=== PATIENT | female | born 1995 | race Caucasian/White ===

== ENCOUNTER 2018-08-30 12:34 | Emergency (ER) | payer OTHER ==
--- OUTSIDE RECORDS SUMMARY | 2018-08-30 13:05 | XMS REPORT | Encounter Summary ---
:1995 Author Care Team Providers Name Role Phone Antonio Freeman OTHER [phone] Reason for Visit OB 12 week visit Instructions 1. 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 Advised her to take vitamins as tolerated, eat small frequent meals, and stay well hydrated. Asked her to call if severe cramping, bleeding, or nausea occurs. Patient educational handouts: No information available. Plan of Care Reminders Provider Appointments OB Sono Sonogram 08/27/2018 9:30AM OB Sono Mary Ellen Abe 08/27/2018 MD Bandar 9:30AM Lab Urinalysis, In-House Results Dipstick 07/30/2018 Referral None recorded. Procedures None recorded. Surgeries None recorded. Imaging US, In-House Results Obstetric, Limited 07/30/2018 Medications Name Start Date heparin (porcine) 10,000 unit/mL injection solution Take 5000 units twice a day by injection route. heparin (porcine) 5,000 unit/mL injection syringe inject 5000 units heparin BID progesterone micronized 200 mg capsule Take 1 capsule every day by oral route. valacyclovir 500 mg tablet TAKE 1 TABLET BY MOUTH EVERY DAY Medications Administered None recorded. Vitals Height Weight BMI Blood Pressure 5 ft 2 in 178 lbs 32.6 kg/m2 112/78 mm[Hg] Lab Results Date Name Specimen Result Interpretation Description Value Range Status Address 07/30/2018 Urinalysis, Leukocytes Negative In-House Dipstick Results: For Internal Use Only Nitrite negative In-House Results: For Internal Use Only Urobilinogen .2 In-House Results: For Internal Use Only Protein Trace In-House Results: For Internal Use Only Ph 7.0 In-House Results: For Internal Use Only Blood Negative In-House Results: For Internal Use Only Specific 1.025 In-House [place] Results: For Internal Use Only Ketone Negative In-House Results: For Internal Use Only Bilirubin Negative In-House Results: For Internal Use Only Glucose Negative In-House Results: For Internal Use Only Appearance Clear In-House Results: For Internal Use Only Color Yellow In-House Results: For Internal Use Only 07/16/2018 Urinalysis, Leukocytes Negative In-House Dipstick Results: For Internal Use Only Nitrite negative In-House Results: For Internal Use Only Urobilinogen .2 In-House Results: For Internal Use Only Protein Negative In-House Results: For Internal Use Only Ph 6.5 In-House Results: For Internal Use Only Blood Negative In-House Results: For Internal Use Only Specific 1.025 In-House [place] Results: For Internal Use Only Ketone Negative In-House Results: For Internal Use Only Bilirubin Negative In-House Results: For Internal Use Only Glucose Negative In-House Results: For Internal Use Only Appearance Clear In-House Results: For Internal Use Only Color Yellow In-House Results: For Internal Use Only 07/16/2018 Chromosome No observation Lou: 201 13+18+21+X+Y recorded. [address] Aneuploidy, Michael 410, Brown Blood Alcides US, Obstetric, No observation In-House Limited recorded. Results: For Internal Use Only US, Obstetric, No observation In-House Limited recorded. Results: For Internal Use Only Allergies Code Code System Name Reaction Severity Status Onset NKDA Problems Name Status Onset Date Source Chlamydial Infection Active 05/12/2014 History Bacterial Vaginosis Active 09/02/2016 At Risk of Sexually Transmitted Active 09/02/2016 Infection Recurrent Miscarriage Active 03/23/2017 History of Abnormal Cervical Active 03/23/2017 Papanicolaou Smear Herpes Simplex Active 12/15/2017 Proteinuria Active 12/15/2017 Acute Pelvic Pain Active 03/06/2018 Menorrhagia Active 03/06/2018 Active 06/25/2018 Recurrent Genital Herpes Simplex Active Encounter Chlamydial Infection of Lower Active Encounter Genitourinary Tract Candidiasis of Vagina Active 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 Polycystic Ovaries Active Encounter Simple Obesity Active Encounter Lack or Loss of Sexual Desire Active Encounter Acute Cystitis Active Encounter Dyspareunia Active Encounter History of Recurrent Miscarriage - Not Active Delivered Atypical Squamous Cells of Undetermined Active Encounter Significance on Cervical Papanicolaou Smear HPV - Human Papillomavirus Test Positive Active Encounter Cervicovaginal Cytology: Low Grade Active Encounter Squamous Intraepithelial Lesion Procedures Date Name Performed by 07/16/2018 US, Obstetric, Limited In-House Results For Internal Use Only 97227 07/30/2018 US, Obstetric, Limited In-House Results For Internal Use Only 60337 Vaccine List None recorded. Social History Smoking Status Never Smoker Past Encounters 07/30/2018 History of Recurrent Miscarriage - Not Delivered Antonio Freeman MD: [address], [address], [place] [address], Ph. [phone] 07/16/2018 Recurrent Miscarriage; History of Recurrent Miscarriage - Not Delivered Antonio Freeman MD: [address], [address], [place] [address], Ph. [phone] History of Present Illness None recorded. Review of Systems None recorded. Physical Exam None recorded.
--- OUTSIDE RECORDS SUMMARY | 2018-08-30 13:05 | XMS REPORT | Encounter Summary ---
:1995 Author Care Team Providers Name Role Phone Antonio Freeman OTHER [phone] Reason for Visit ob routine visit Instructions 1. screening US, obstetric, transvaginal urinalysis, dipstick culture, urine CBC w/ auto diff HIV (1+2) Ab screen, serum abo group + rh type, blood HBsAg (hepatitis B surface Ag), serum rubella Ab, titer, serum RPR (rapid plasma reagin), serum antibody screen, serum or plasma drug screen, 14 drugs (detectimed), urine genetic screen, unspecified specimen Discussion Note: None recorded.Patient educational handouts: No information available. Plan of Care Reminders Provider Appointments OB Follow up Antonio Freeman, 07/16/2018 9:30AM Lab Urinalysis, In-House Results Dipstick 06/25/2018 Culture, Urine [place] 06/25/2018 [facility] (Lab) CBC W/ Auto [place] Diff 06/25/2018 [facility] (Lab) HIV (1+2) Ab [place] Screen, Serum 06/25/2018 [facility] (Lab) Abo Group + Rh [place] Type, Blood 06/25/2018 [facility] (Lab) HBsAg [place] (Hepatitis B Surface Ag), 06/25/2018 [facility] (Lab) Rubella Ab, [place] Titer, Serum 06/25/2018 [facility] (Lab) RPR (Rapid [place] Plasma Reagin), Serum 06/25/2018 [facility] (Lab) Antibody [place] Screen, Serum or Plasma 06/25/2018 [facility] (Lab) Drug Screen, 14 [place] Drugs (Detectimed), Urine 06/25/2018 [facility] (Lab) Genetic Screen, [place] Unspecified Specimen 06/25/2018 [facility] (Lab) Referral None recorded. Procedures None recorded. Surgeries None recorded. Imaging US, Obstetric, In-House Results Transvaginal 06/25/2018 Medications Name Start Date progesterone micronized 200 mg capsule Take 1 capsule every day by oral route. valacyclovir 500 mg tablet TAKE 1 TABLET BY MOUTH EVERY DAY Medications Administered None recorded. Vitals Height Weight BMI Blood Pressure 5 ft 2 in 182.2 lbs 33.3 kg/m2 135/83 mm[Hg] Lab Results Date Name Specimen Result Interpretation Description Value Range Status Address Urinalysis, Leukocytes Negative In-House Dipstick Results: For Internal Use Only Nitrite negative In-House Results: For Internal Use Only Urobilinogen .2 In-House Results: For Internal Use Only Protein Negative In-House Results: For Internal Use Only Ph 6.0 In-House Results: For Internal Use Only Blood Negative In-House Results: For Internal Use Only Specific 1.005 In-House [place] Results: For Internal Use Only Ketone Negative In-House Results: For Internal Use Only Bilirubin Negative In-House Results: For Internal Use Only Glucose Negative In-House Results: For Internal Use Only Appearance Clear In-House Results: For Internal Use Only Color Yellow In-House Results: For Internal Use Only US, Obstetric, No observation In-House Transvaginal recorded. Results: For Internal Use Only Allergies [...] Acute Cystitis Active Encounter Dyspareunia Active Encounter Atypical Squamous Cells of Undetermined Active Encounter Significance on Cervical Papanicolaou Smear HPV - Human Papillomavirus Test Positive Active Encounter Cervicovaginal Cytology: Low Grade Active Encounter Squamous Intraepithelial Lesion Procedures Date Name Performed by 06/25/2018 US, Obstetric, Transvaginal In-House Results For Internal Use Only 12343 Vaccine List None recorded. Social History Smoking Status Never Smoker Past Encounters 06/25/2018 Screening Mary Ellen Portillo MD: [address], [address], [place] [address], Ph. [phone] History of Present Illness None recorded. Review of Systems None recorded. Physical Exam None recorded.
--- OUTSIDE RECORDS SUMMARY | 2018-08-30 13:05 | XMS REPORT | Encounter Summary ---
:1995 Author Care Team Providers Name Role Phone Antonio Colvins OTHER [phone] Reason for Visit NOB Instructions 1. Recurrent miscarriage US, obstetric, limited urinalysis, dipstick factor V mutation, blood or tissue prothrombin (factor II) [id number] mutation, blood protein S activity, plasma unlisted lab - protein C heparin (porcine) 10,000 unit/mL injection solution chromosome 13+18+21+X+Y aneuploidy, blood heparin (porcine) 5,000 unit/mL injection syringe 2. History of recurrent miscarriage - not delivered Discussion Note Discussed diet, activity, PNV, and iron supplement. reviewed OTC medications safe in .Explained expected symptoms for current and future trimesters.Plans for upcoming visits outlined, including ultrasounds and screening tests.Gave new Ob literature. Explained how to contact me and asked her to call if cramping, bleeding, or nausea occur or if she has any questions or problems.Total time face to face with patient was at least 45 minutes and over 50% was spent on counseling. Patient educational handouts: No information available. Plan of Care Reminders Provider Appointments OB Sono Antonio Lydia, 07/30/2018 10:45AM OB Sono Sonogram 07/30/2018 10:45AM Lab Urinalysis, In-House Results Dipstick 07/16/2018 Factor v [place] Mutation, Blood or 07/16/2018 [facility] (Lab) Prothrombin [place] (Factor II) [id number] 07/16/2018 [facility], [facility] (Lab) Protein S [place] Activity, Plasma 07/16/2018 [place] (Lab) Unlisted Lab [place] 07/16/2018 [place] (Lab) Chromosome [place] 13+18+21+X+Y Aneuploidy, 07/16/2018 [facility] (Lab) Referral None recorded. Procedures None recorded. Surgeries None recorded. Imaging US, Obstetric, In-House Results Limited 07/16/2018 Medications Name Start Date heparin (porcine) 10,000 [...] BMI Blood Pressure 5 ft 2 in 177 lbs 32.4 kg/m2 117/79 mm[Hg] Lab Results Date Name Specimen Result Interpretation Description Value Range Status Address 07/16/2018 Urinalysis, Leukocytes Negative In-House Dipstick Results: For Internal Use Only Nitrite negative In-House Results: For Internal Use Only Urobilinogen .2 In-House Results: For Internal Use Only Protein Negative In-House Results: For Internal Use Only Ph 6.5 In-House Results: For Internal Use Only Blood Negative In-House Results: For Internal Use Only Specific 1.025 In-House [place] Results: For Internal Use Only Ketone Negative In-House Results: For Internal Use Only Bilirubin Negative In-House Results: For Internal Use Only Glucose Negative In-House Results: For Internal Use Only Appearance Clear In-House Results: For Internal Use Only Color Yellow In-House Results: For Internal Use Only 06/25/2018 CBC W/ Auto Normal White Blood 8.6 K/uL 4.0-11.5 Final [place] Diff Count K/uL [place] (Lab): [address] [place] [address] Normal Red Blood 4.69 M/uL 3.80-5.20 Final [place] Count M/uL [place] (Lab): [address] [place] [address] Normal Hemoglobin 13.6 g/dL 10.5-15.7 Final [place] g/dL [place] (Lab): [address] [place] [address] Normal Hematocrit 41.4 % 34.0-50.0 Final [place] % [place] (Lab): [address] [place] [address] Normal Mean 88.2 fL 78-98 fL Final [place] Corpuscular [facility] Volume [facility] (Lab): [address] [place] [address] Normal Mean 29.0 pg 26.2-33.4 Final [place] Corpuscular pg [facility] (Lab): [address] [place] [address] Normal Mean 32.9 g/dL 31.5-36.2 Final [place] Corpuscular g/dL [facility] HGB [facility] (Lab): [address] [place] [address] Normal Red Cell 12.2 % 11.5-15.5 Final [place] Distribution % [facility] (Lab): [address] [place] [address] Normal Platelet 282 K/uL 137-338 Final [place] Count K/uL [facility] (Lab): [address] [place] [address] Low Mean 7.5 fL 8.4-11.8 Final [place] Platelet fL [facility] (Lab): [address] [place] [address] Normal Neutrophils 58.9 % 44.4-80.1 Correcte [place] % % d [place] (Lab): [address] [place] [address] Normal Lymphocyte% 32.1 % 10.0-50.0 Final [place] % [place] (Lab): [address] [place] [address] Normal Dickey % 6.1 % 3.6-12.04 Final [place] % [place] (Lab): [address] [place] [address] Normal Eos % 1.7 % 0.0-5.41 Final [place] % [place] (Lab): [address] [place] [address] High Basophil % 1.3 % 0.0-0.79 Final [place] % [place] (Lab): [address] [place] [address] 06/25/2018 Differential Normal Neutrophils [place] Panel, Blood [facility] (Lab): [address] [place] [address] Normal Band [place] [facility] (Lab): [address] [place] [address] Normal Lymphocyte [place] [facility] (Lab): [address] [place] [address] Normal Atypical [place] Lymph [facility] (Lab): [address] [place] [address] Normal Monocyte [place] [facility] (Lab): [address] [place] [address] Normal Platelet [place] Estimate [facility] (Lab): [address] [place] [address] Normal Platelet [place] Morphology [facility] (Lab): [address] [place] [address] Normal Differential [place] comment-P [facility] (Lab): [address] [place] [address] 06/25/2018 Rubella Igg Normal Rubella IgG 201.0 Final [place] Ab, Titer, [IU]/mL [facility] (Lab): [address] [place] [address] 06/25/2018 RPR (Rapid Normal Rpr nonreactive nonreacti Final [place] Plasma ve [facility] Reagin), [facility] (Lab): [address] [place] [address] 06/25/2018 HIV (1+2) Ab Normal HIV P24 Ag nonreacti Final [place] Screen, Serum ve [place] (Lab): [address] [place] [address] Normal HIV-1/2 Ab nonreacti Final [place] ve [place] (Lab): [address] [place] [address] 06/25/2018 Abo Group + Rh Bld 4+ Final [place] Rh Type, [facility] Blood [facility] (Lab): [address] [place] [address] ABO + Rh Pnl A positive Final [place] Bld [place] (Lab): [address] [place] [address] 06/25/2018 Antibody Bld Gp Ab negative Final [place] Screen, Serum Scn Serpl Ql [facility] or Plasma [facility] (Lab): [address] [place] [address] 06/25/2018 Culture, Bacteria Ur no growth at Final [place] Urine Cult 48 hrs. [place] (Lab): [address] [place] [address] 06/25/2018 HBsAg Normal .Hepatitis B negative negative Final [place] (Hepatitis B Surface [facility] Surface Ag), [facility] (Lab): [address] [place] [address] US, No In-House Obstetric, observation Results: Limited recorded. For Internal Use Only Urinalysis, Leukocytes Negative In-House Dipstick Results: For Internal Use Only Nitrite negative In-House Results: For Internal Use Only Urobilinogen .2 In-House Results: For Internal Use Only Protein Negative In-House Results: For Internal Use Only Ph 6.0 In-House Results: For Internal Use Only Blood Negative In-House Results: For Internal Use Only Specific 1.005 In-House [place] Results: For Internal Use Only Ketone Negative In-House Results: For Internal Use Only Bilirubin Negative In-House Results: For Internal Use Only Glucose Negative In-House Results: For Internal Use Only Appearance Clear In-House Results: For Internal Use Only Color Yellow In-House Results: For Internal Use Only US, No In-House Obstetric, observation Results: Transvaginal recorded. For Internal Use Only Allergies Code Code [...] Transvaginal In-House Results For Internal Use Only 22249 07/16/2018 US, Obstetric, Limited In-House Results For Internal Use Only 44977 Vaccine List None recorded. Social History Smoking Status Never Smoker Past Encounters 07/16/2018 Recurrent Miscarriage; History of Recurrent Miscarriage - Not Delivered Antonio Freeman MD: [address] [facility], [address], [place] [address], Ph. [phone] 06/25/2018 Screening Mary Ellen Portillo MD: [address] [facility], [address], [place] [address], Ph. [phone] History of Present Illness Note: New ob visit. 23 y/o Ab6, h/o first trimester SAB x 6. No nausea or vomiting. She has cramping but no bleeding. She is using progesterone suppositories and taking ASA 81 mg since 4 weeks EGA. Anti- phospholipid antibody panel negative. PMH/PSH negative. Review of Systems [employer] ROS Reported By: Patient Constitutional: Constitutional: no fatigue, no fever, no significant weight gain, no significant weight loss Skin: Skin: no abnormal moles, no rashes Eyes: Eyes: no irritation, no vision changes ENMT: ENMT: no hearing loss, no ear pain, no nose/sinus problems, no sore throat, no snoring, no dry mouth, no mouth ulcers Respiratory: Respiratory: no dyspnea / shortness of breath, no cough, no sputum production, no hemoptysis, no wheezing Cardiovascular: Cardiovascular: no chest pain, no palpitations, no orthopnea Gastrointestinal: Gastrointestinal: no heartburn, no dysphagia, no nausea, no vomiting, no abdominal pain, no bowel movement changes, no diarrhea, no constipation, no rectal bleeding Genitourinary: Genitourinary: no hematuria, no abnormal bleeding, no flank pain, no trouble urinating, no incontinence, no rash, no lesion, no discharge, no vaginal odor, no vaginal itching Endocrine: Menstrual: no menstrual problems, no PMDD symptoms. Menopausal: no menopausal symptoms. Sexual: no sexual problems Musculoskeletal: Musculoskeletal: no muscle aches, no muscle weakness, no arthralgias/joint pain, no back pain Neurological: Neurologic: no headaches, no dizziness, no LOC, no weakness, no numbness, no seizures Psychological: Psych: no depression, no alcoholism, no sleep disturbances Physical Exam Initial OB Reported By: Patient General Appearance: General Appearance: healthy-appearing , well- nourished, no acute distress Skin: Appearance: no rashes, no lesions Neck: Thyroid: no enlargement, no nodules, non-tender Lymph Nodes: Palpation: non tender submandibular nodes, non tender axillary nodes, non tender inguinal nodes Cardiovascular System: Auscultation: RRR, no murmur, no gallops. Legs: no LLE edema, no RLE edema, no varicosities, no calf tenderness, no palpable cords Lungs: Auscultation: no wheezing, no rales / crackles, no rhonchi Abdomen: Auscultation/Inspection/Palpation: soft, non-distended, no tenderness/guarding/rebound, no hepatomegaly, no splenomegaly, no masses, no CVA tenderness. Hernia: none palpated
--- OUTSIDE RECORDS SUMMARY | 2018-08-30 13:06 | XMS REPORT | Continuity of Care Document ---
:1995 Author Organization [facility] Address [address] [place] [address] Phone Unavailable Care Team Providers Name Role Phone PHYSICIAN, NO Primary Care Physician Unavailable Insurance Providers Guarantor Vicenta Zarate Address [address] [place] [phone] Email [email or web address] [email or web address] [employer] Policy Number [id number] Subscriber's Name Vicenta Barrios Relationship Self / Same As Patient Group Number [id number] Group Name NA Advance Directives Directive Response Recorded Date/Time Name of Surrogate/Decision Maker NA 08/17/18 8:42pm Patient/Family Given Education Material R/T Y - KR...08/17/18 08/17/18 8: 42pm Directives? Problems No problem information available. Medications No medication information available. Social History Smoking Status Start Date Stop Date Never smoker Hospital Discharge Instructions No hospital discharge instruction information available. Plan of Care Discharge Date 08/18/18 12:12am Instructions/Education Provided Abdominal Pain, Adult, Cysw-rm-Acis Vomiting, Adult Forms Provided Portal Welcome Letter Prescriptions See Medication Section Referrals NO PHYSICIAN Additional Instructions/Education May take Zofran as needed for nausea Drink plenty of fluid Follow up with Doctor Phong next week Functional Status No functional status information available. Allergies, Adverse Reactions, Alerts No known allergies. Immunizations No immunization information available. Vital Signs Acute Vital Signs Vital Response Date/Time Blood Pressure 108/72 mm Hg 08/18/2018 12:11am Pulse Pulse Rate (adult) 95 beats per minute (60 - 100) 08/18/2018 12:11am Respiratory Rate 16 breaths per minute (10 - 24) 08/18/2018 12:11am Temperature Source Oral 08/18/2018 12:11am Height 5 ft 2 in 08/17/2018 8:35pm Weight 180 lb 08/17/2018 8:35pm Body Mass Index 32.9 kg/m^2 08/17/2018 8:35pm Results Laboratory Results Test Name Result Units Flags Reference Collection Result Comments Date/Time Date/Time Urine NEGATIVE NG/ML NEGATIVE 06/25/2018 06/25/2018 Amphetamines 1:27pm 4:45pm Screen Urine NEGATIVE NG/ML NEGATIVE 06/25/2018 06/25/2018 Barbiturates 1:27pm 4:45pm , Quantitative Urine NEGATIVE NG/ML NEGATIVE 06/25/2018 06/25/2018 Benzodiazepi 1:27pm 4:45pm eveline Screen Urine NEGATIVE NG/ML NEGATIVE 06/25/2018 06/25/2018 Cannabinoids 1:27pm 4:45pm Urine NEGATIVE NG/ML NEGATIVE 06/25/2018 06/25/2018 Cocaine 1:27pm 4:45pm Metabolite Urine NEGATIVE NG/ML NEGATIVE 06/25/2018 06/25/2018 Opiates 1:27pm 4:45pm Screen Urine NEGATIVE NG/ML NEGATIVE 06/25/2018 06/25/2018 Phencyclidin 1:27pm 4:45pm e (PCP) Level Methadone NEGATIVE NG/ML NEGATIVE 06/25/2018 06/25/2018 Level 1:27pm 4:45pm Propoxyphene NEGATIVE NG/ML NEGATIVE 06/25/2018 06/25/2018 Level 1:27pm 4:45pm Oxycodone NEGATIVE NG/ML NEGATIVE 06/25/2018 06/25/2018 Level 1:27pm 4:45pm Urine Drug . 06/25/2018 06/25/2018 DRUGS OF ABUSE CUT-OFF VALUES Screen Note 1:27pm 4:38pm AMPHETAMINES (AMPH) NEGATIVE (CUT OFF CONC: 1000 NG/ML) BARBITUATES (DAVID) NEGATIVE (CUT OFF CONC: 200 NG/ML) BENZODIAZEPINES (CHARITY) NEGATIVE (CUT OFF CONC: 300 NG/ML) CANNABINOIDS (THC) NEGATIVE (CUT OFF CONC: 50 NG/ML) COCAINE (CAROLEE) NEGATIVE (CUT OFF CONC: 300 NG/ML) OPIATES (OPI) NEGATIVE (CUT OFF CONC: 300 NG/ML) PHENCYCLIDINE (PCP) NEGATIVE (CUT OFF CONC: 25 NG/ML)METHADONE (MTD) NEGATIVE (CUT OFF CONC: 300 NG/ML) PROPOXYPHENE (PPX) NEGATIVE (CUT OFF CONC: 300 NG/ML) OXYCODONE (OXY) NEGATIVE (CUT OFF CONC: 100 NG/ML) ANY POSITIVE RESULT IS UNCONFIRMED. CONFIRMATION AND QUANTITATION AVAILABLE UPON MD REQUEST. HIV P24 NON-REACTIVE NONREACTIVE 06/25/2018 06/25/2018 Antigen 11:50am 1:39pm HIV (1&2) NON-REACTIVE NONREACTIVE 06/25/2018 06/25/2018 A Nonreactive result does not preclude the possibility of Antibody 11:50am 1:39pm exposure to HIV or infection with HIV. Rubella IgG 201.0 IU/mL 06/25/2018 06/25/2018 Non-reactive: <10 IU/mL Antibody 11:50am 1:18pm Reactive: >10 IU/mL A result >10 IU/mL is considered to be positive for IgG antibodies to Rubella virus. The presence of IgG antibodies to Rubella virus is an indication of previous exposure to the virus, either by prior infection or by vaccination. Rapid Plasma NONREACTIVE NONREACTIVE 06/25/2018 06/25/2018 Reagin 11:50am 1:29pm Hepatitis B Negative Negative 06/25/2018 06/27/2018 Performed at: - [facility] 11:50am 7:18am [address] [place], [place] [id number] Antigen It Professional: To Hanson MD, Phone: [phone] Functional 69 % 63-140 07/16/2018 07/21/2018 Protein S activity may be falsely increased (masking an Protein S 11:12am 3:13pm abnormal, low result) in patients receiving direct Xa inhibitor (e.g., rivaroxaban, apixaban, edoxaban) or a direct thrombin inhibitor (e.g., dabigatran) anticoagulant treatment due to assay interference by these drugs. Performed at: [address] [id number] It Professional: Axel Pierson MD, Phone: [phone] Protein C 78 % 60-150 07/16/2018 07/19/2018 Performed at: [facility] 11:12am 1:19pm [address] [place], [place] [id number] It Professional: Axel Pierson MD, Phone: [phone] White Blood 9.8 K/ul 4.0-11.5 08/17/2018 08/17/2018 Count 10:00pm 10:10pm Red Blood 4.64 M/ul 3.80-5.20 08/17/2018 08/17/2018 Count 10:00pm 10:10pm Hemoglobin 12.9 g/dl 10.5-15.7 08/17/2018 08/17/2018 10:00pm 10:10pm Hematocrit 39.5 % 34.0-50.0 08/17/2018 08/17/2018 10:00pm 10:10pm Mean 85.2 fl 78-98 08/17/2018 08/17/2018 Corpuscular 10:00pm 10:10pm Volume Mean 27.8 pg 26.2-33.4 08/17/2018 08/17/2018 Corpuscular 10:00pm 10:10pm Hemoglobin Mean 32.7 g/dl 31.5-36.2 08/17/2018 08/17/2018 Corpuscular 10:00pm 10:10pm Hemoglobin Concent Red Cell 12.0 % 11.5-15.5 08/17/2018 08/17/2018 Distribution 10:00pm 10:10pm Width Platelet 246 K/ul 137-338 08/17/2018 08/17/2018 Count 10:00pm 10:10pm Mean 7.7 fl L 8.4-11.8 08/17/2018 08/17/2018 Platelet 10:00pm 10:10pm Volume Neutrophils 64.0 % 44.4-80.1 08/17/2018 08/17/2018 (%) (Auto) 10:00pm 10:10pm Lymphocytes 28.3 % 10.0-50.0 08/17/2018 08/17/2018 (%) (Auto) 10:00pm 10:10pm Monocytes 5.2 % 3.6-12.04 08/17/2018 08/17/2018 (%) (Auto) 10:00pm 10:10pm Eosinophils 1.9 % 0.0-5.41 08/17/2018 08/17/2018 (%) (Auto) 10:00pm 10:10pm Basophils 0.5 % 0.0-0.79 08/17/2018 08/17/2018 (%) (Auto) 10:00pm 10:10pm Urine Color YELLOW 08/17/2018 08/17/2018 10:34pm 10:48pm Urine SL CLOUDY A CLEAR 08/17/2018 08/17/2018 Appearance 10:34pm 10:48pm Urine NEGATIVE NEGATIVE 08/17/2018 08/17/2018 Glucose 10:34pm 10:48pm Urine NEGATIVE NEGATIVE 08/17/2018 08/17/2018 Bilirubin 10:34pm 10:48pm Urine NEGATIVE NEGATIVE 08/17/2018 08/17/2018 Ketones 10:34pm 10:48pm Urine 1.019 1.003-1.030 08/17/2018 08/17/2018 Specific 10:34pm 10:48pm [place] Urine Blood NEGATIVE NEGATIVE 08/17/2018 08/17/2018 10:34pm 10:48pm Urine pH 6.500 5-9 08/17/2018 08/17/2018 10:34pm 10:48pm Urine NEGATIVE NEGATIVE 08/17/2018 08/17/2018 Protein 10:34pm 10:48pm Urine NORMAL mg/dL 0.2-1.0 08/17/2018 08/17/2018 Urobilinogen 10:34pm 10:48pm Urine NEGATIVE NEGATIVE 08/17/2018 08/17/2018 Nitrate 10:34pm 10:48pm Urine NEGATIVE NEGATIVE 08/17/2018 08/17/2018 Leukocyte 10:34pm 10:48pm Esterase Urine RBC <1 /hpf 0-5 08/17/2018 08/17/2018 10:34pm 10:48pm Urine WBC 1-5 /hpf 0-5 08/17/2018 08/17/2018 10:34pm 10:48pm Urine 1-5 /hpf 0-5 08/17/2018 08/17/2018 Epithelial 10:34pm 10:48pm Cells Urine SMALL(1+) /hpf None Detect 08/17/2018 08/17/2018 Bacteria 10:34pm 10:48pm Urine Casts 2-5 /lpf None Detect 08/17/2018 08/17/2018 10:34pm 10:48pm Urine NO 08/17/2018 08/17/2018 Culture 10:34pm 10:48pm Reflexed Random 106 mg/dL 74-106 08/17/2018 08/17/2018 Glucose 10:00pm 10:28pm Blood Urea 5 mg/dL L -08/17/2018 08/17/2018 Nitrogen 10:00pm 10:28pm Serum 272 L 280-300 08/17/2018 08/17/2018 Osmolality 10:00pm 10:28pm Creatinine 0.4 mg/dL L 0.50-0.90 08/17/2018 08/17/2018 10:00pm 10:28pm Glomerular > 60.00 08/17/2018 08/17/2018 GFR RESULTS ARE REPORTED IN mL/min/1.73m2. Filtration 10:00pm 10:28pm Rate Calc Normal GFR: >60mL/min Moderately decreased GFR: 30-59 mL/min Severely decreased GFR: 15-29 mL/min Kidney Failure (or Dialysis): <15 mL/min The calculated eGFR is not valid for patients younger than 18 years or older than 75 years. BUN/Creatini 12.5 -08/17/2018 08/17/2018 ne Ratio 10:00pm 10:28pm Sodium Level 137 mmol/L 135-145 08/17/2018 08/17/2018 10:00pm 10:28pm Potassium 3.5 mmol/L 3.5-5.2 08/17/2018 08/17/2018 Level 10:00pm 10:28pm Chloride 101 mmol/L 98-108 08/17/2018 08/17/2018 Level 10:00pm 10:28pm Carbon 23 mmol/L 21-32 08/17/2018 08/17/2018 Dioxide 10:00pm 10:28pm Level Anion Gap 16.5 mEq/L -08/17/2018 08/17/2018 10:00pm 10:28pm Calcium 9.4 mg/dL 8.6-10.0 08/17/2018 08/17/2018 Level 10:00pm 10:28pm Total 7.1 g/dL 6.6-8.7 08/17/2018 08/17/2018 Protein 10:00pm 10:28pm Albumin 3.8 g/dL 3.5-5.2 08/17/2018 08/17/2018 10:00pm 10:28pm Globulin 3.3 gm/dL 08/17/2018 08/17/2018 10:00pm 10:28pm Albumin/Glob 1.2 >1.0 08/17/2018 08/17/2018 ulin Ratio 10:00pm 10:28pm Total < 0.3 mg/dL 0.0-1.2 08/17/2018 08/17/2018 Bilirubin 10:00pm 10:28pm Aspartate 13 U/L L 15-32 08/17/2018 08/17/2018 Amino Transf 10:00pm 10:28pm (AST/SGOT) Alanine 18 U/L 0-33 08/17/2018 08/17/2018 Aminotransfe 10:00pm 10:28pm rase (ALT/SGPT) Total 64 U/L 35-105 08/17/2018 08/17/2018 Alkaline 10:00pm 10:28pm Phosphatase Procedures Procedure Status Date Provider(s) VALDEMAR TEST INDIRECT QUAL Completed 06/25/18 SYPHILIS TEST NON-TREP QUAL Completed 06/25/18 BLOOD TYPING SEROLOGIC ABO Completed 06/25/18 COMPLETE CBC W/AUTO DIFF WBC Completed 06/25/18 HEPATITIS B SURFACE AG IA Completed 06/25/18 HIV ANTIGEN W/HIV ANTIBODIES Completed 06/25/18 BLOOD TYPING SEROLOGIC RH(D) Completed 06/25/18 ROUTINE VENIPUNCTURE Completed 06/25/18 RUBELLA ANTIBODY Completed 06/25/18 URINE BACTERIA CULTURE Completed 06/25/18 DRUG TEST PRSMV CHEM ANLYZR Completed 06/25/18 F5 GENE Completed 07/16/18 CLOT INHIBIT PROT S FREE Completed 07/16/18 CLOT FACTOR II PROTHROM SPEC Completed 07/16/18 CLOT INHIBIT PROT C ANTIGEN Completed 07/16/18 ROUTINE VENIPUNCTURE Completed 07/16/18 Encounters Encounter Location Arrival/Admit Date Discharge/Depart Date Attending Provider Departed Rosa 08/17/18 8:31pm 08/18/18 12:12am ABIGAIL, Emergency Room [facility] DEMETRIS Roberts MD Medical Ctr Registered [place] [facility] [place] 06/25/18 11:30am [facility] JOANNA Key MD Medical [facility]
--- OUTSIDE RECORDS SUMMARY | 2018-08-30 13:06 | XMS REPORT | Encounter Summary ---
:1995 Author Care Team Providers Name Role Phone Antonio Freeman OTHER [phone] Reason for Visit OB 16 week visit Instructions 1. screening urinalysis, dipstick afp (alpha-fetoprotein), serum US, obstetric, maternal evaluation + anatomy - Please schedule for 4 weeks from today 2. History of recurrent miscarriage - not delivered 3. Routine care US, obstetric, limited 4. Recurrent miscarriage Discussion Note: None recorded.Patient educational handouts: No information available. Plan of Care Reminders Provider Appointments OB Follow up Wendy Jang 09/24/2018 FRANK Funes 10:00AM Lab Urinalysis, In-House Results Dipstick 08/27/2018 Afp [place] (Alpha-fetoprotein), 08/27/2018 [facility] (Lab) Referral None recorded. Procedures None recorded. Surgeries None recorded. Imaging US, Obstetric, [place] Maternal 08/27/2018 [facility] (Scheduling) Anatomy US, Obstetric, In-House Results Limited 08/27/2018 Medications Name Start Date heparin (porcine) 10,000 unit/mL injection solution Take 5000 units twice a day by injection route. heparin (porcine) 5,000 unit/mL injection syringe inject 5000 units heparin BID hydroxyzine pamoate 25 mg capsule paroxetine 10 mg tablet paroxetine 20 mg tablet progesterone micronized 200 mg capsule Take 1 capsule every day by oral route. valacyclovir 500 mg tablet TAKE 1 TABLET BY MOUTH EVERY DAY Medications Administered None recorded. Vitals Height Weight BMI Blood Pressure 5 ft 2 in 178.2 lbs 32.6 kg/m2 Lab Results Date Name Specimen Result Interpretation [...] For Internal Use Only Specific 1.025 In-House [place] Results: For Internal Use Only Ketone Negative [...] NKDA Problems Name Status Onset Date Source At Risk of Sexually Transmitted Active 09/02/2016 Infection Recurrent Miscarriage Active 03/23/2017 History of Abnormal Cervical Active 03/23/2017 Papanicolaou Smear Proteinuria Active 12/15/2017 Acute Pelvic Pain Active 03/06/2018 Active 06/25/2018 Recurrent Genital Herpes Simplex Active Encounter History of Recurrent Miscarriage - Not Active Delivered Procedures Date Name Performed by 07/30/2018 US, Obstetric, Limited In-House Results For Internal Use Only [address] 08/27/2018 US, Obstetric, Maternal [facility] ( Scheduling) Evaluation + Anatomy [address] [place], [place] [id number] (Work Place) 08/27/2018 US, Obstetric, Limited In-House Results For Internal Use Only [address] Vaccine List None recorded. Social History Smoking Status Never Smoker Past Encounters 08/27/2018 Screening; History of Recurrent Miscarriage - Not Delivered; Routine Care; Recurrent Miscarriage Mary Ellen Portillo MD: [address], [address], [place] [address], Ph. [phone] 07/30/2018 History of Recurrent Miscarriage - Not Delivered Antonio Freeman MD: [address], [address], [place] [address], Ph. [phone] History of Present Illness None recorded. Review of Systems None recorded. Physical Exam None recorded.
[2018-08-30 13:47] LABS: Absolute Monocytes 0.5 K/uL (0.1-1.3); Absolute Neutrophil 7.4 K/uL (1.8-8.0); Basophils % 0.1 % (0-1.3); Eosinophils % 1.6 % (0-4.4); MPV 8.9 fL (7.6-11.3)
[2018-08-30 13:50] LABS: BUN Blood Urea Nitrogen 5 mg/dL (7-18); Bicarbonate 23 mmol/L (21-32); Glucose Level 103 mg/dL (74-106); Potassium 3.3 mmol/L (3.5-5.1); Sodium Level 140 mmol/L (136-145)
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
[2018-08-30 15:40] LABS: Urine Blood NEGATIVE (NEG); Urine Glucose NEGATIVE (NEG); Urine Protein NEGATIVE (NEG)
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
== END 2018-08-30 16:57 | disposition home or self-care (01) ==
LOC: ER 12:34
DX: O26.891 Other specified pregnancy related conditions, first trimester (principal); M54.5 Low back pain; M25.571 Pain in right ankle and joints of right foot; Z3A.00 Weeks of gestation of pregnancy not specified
CPT/HCPCS: 36415; 76815; 80048; 81003; 81025; 85025; 86900; 86901; 99285

== ENCOUNTER 2018-11-15 13:06 | Emergency (ER) | payer OTHER ==
--- OUTSIDE RECORDS SUMMARY | 2018-11-15 13:09 | XMS REPORT | Encounter Summary ---
:1995 Author Care Team Providers Name Role Phone Antonio Freeman OTHER [phone] Reason for Visit Ob problem Instructions 1. or effect of maternal injury urinalysis, dipstick US, obstetric, limited 2. screening afp (alpha-fetoprotein) panel, maternal screen, serum - Wrong test performed previously. This is for MATERNAL serum AFP (not tumor marker). Discussion Note Visit performed on an emergent basis. At least 15 min. of face to face time with the patient, >50% spent on counseling. Patient educational handouts: No information available. Plan of Care Reminders Provider Appointments OB Follow up Wendy Funes, 09/24/2018 NP 10:00AM Lab Urinalysis, In-House Results Dipstick 08/31/2018 Afp [facility] (Alpha-fetoprotein) 08/31/2018 [facility] (Lab[facility] Panel, Maternal Screen, Serum Referral None recorded. Procedures None recorded. Surgeries None recorded. Imaging US, In-House Results Obstetric, Limited 08/31/2018 Medications Name Start Date acetaminophen 300 mg-codeine 30 mg tablet heparin (porcine) 10,000 unit/mL injection solution Take [...] BMI Blood Pressure 5 ft 2 in 175.7 lbs 32.1 kg/m2 125/70 mm[Hg] Lab Results Date Name Specimen Result Interpretation Description Value Range Status Address 08/31/2018 Urinalysis, Leukocytes Negative In-House Dipstick Results: For Internal Use Only Nitrite negative In-House Results: For Internal Use Only Urobilinogen .2 In-House Results: For Internal Use Only Protein Negative In-House Results: For Internal Use Only Ph 7.0 In-House Results: For Internal Use Only Blood Negative In-House Results: For Internal Use Only Specific 1.020 In-House [place] Results: For Internal Use Only Ketone Negative In-House Results: For Internal Use Only Bilirubin Negative In-House Results: For Internal Use Only Glucose Negative In-House Results: For Internal Use Only Appearance Clear In-House Results: For Internal Use Only Color Yellow In-House Results: For Internal Use Only 08/27/2018 Urinalysis, Leukocytes Negative In-House Dipstick Results: For Internal Use Only Nitrite negative In-House Results: For Internal Use Only Urobilinogen .2 In-House Results: For Internal Use Only Protein Trace In-House Results: For Internal Use Only Ph 7.5 In-House Results: For Internal Use Only Blood Negative In-House Results: For Internal Use Only Specific 1.020 In-House [place] Results: For Internal Use Only Ketone Negative In-House Results: For Internal Use Only Bilirubin Negative In-House Results: For Internal Use Only Glucose Negative In-House Results: For Internal Use Only Appearance Cloudy In-House Results: For Internal Use Only Color Pale Yellow In-House Results: For Internal Use Only [...] Active Delivered Procedures Date Name Performed by 08/27/2018 US, Obstetric, Maternal [facility] ( [facility]) Evaluation + Anatomy [address] [place] [address] (Work Place) 08/27/2018 US, Obstetric, Limited In-House Results For Internal Use Only [address] 08/31/2018 US, Obstetric, Limited In-House Results For Internal Use Only 31682 Vaccine List None recorded. Social History Smoking Status Never Smoker Past Encounters 08/31/2018 or Effect of Maternal Injury; Screening Antonio Freeman MD: [address] [place] [address], [address], [place] [address], Ph. [phone] 08/27/2018 Screening; History of Recurrent Miscarriage - Not Delivered; Routine Care; Recurrent Miscarriage Mary Ellen Portillo MD: [address] [facility], [address], [place] [address], Ph. [phone] History of Present Illness None recorded. Review of Systems None recorded. Physical Exam Pelvic Reported By: Patient Editor Map: Editor Map: present Female Genitalia: Vulva: no masses, no atrophy, no lesions. Bladder/Urethra: normal meatus, no urethral discharge, no urethral mass, bladder non distended. Vagina no tenderness, no erythema, no vesicle(s) or ulcers, no cystocele, no rectocele, abnormal vaginal discharge. Cervix: grossly normal, no discharge, no cervical motion tenderness; No fluid leak from os with valsalva
--- OUTSIDE RECORDS SUMMARY | 2018-11-15 13:09 | XMS REPORT | Encounter Summary ---
:1995 Author Care Team Providers Name Role Phone Antonio Lydia OTHER [phone] Reason for Visit F/U ob visit Instructions 1. Gastroesophageal reflux disease without esophagitis omeprazole 40 mg capsule,delayed release 2. screening urinalysis, dipstick Discussion Note Discussed labor symptoms and expected movement. Encouraged adequate fluid intake and daily PNV and iron. Patient educational handouts: No information available. Plan of Care Reminders Provider Appointments OB Follow up Antonio Freeman, 10/22/2018 10:00AM Lab Urinalysis, In-House Results Dipstick 09/24/2018 Referral None recorded. Procedures None recorded. Surgeries None recorded. Imaging None recorded. Medications Name Start Date acetaminophen 300 mg-codeine 30 mg tablet heparin (porcine) 10,000 unit/mL injection solution Take 5000 units twice a day by injection route. heparin (porcine) 5,000 unit/mL injection syringe inject 5000 units heparin BID hydroxyzine pamoate 25 mg capsule omeprazole 40 mg capsule,delayed release Take 1 capsule every day by oral route. paroxetine 10 mg tablet paroxetine 20 mg tablet progesterone micronized 200 mg capsule Take 1 capsule every day by oral route. valacyclovir 500 mg tablet TAKE 1 TABLET BY MOUTH EVERY DAY Medications Administered None recorded. Vitals Height Weight BMI Blood Pressure 5 ft 2 in 176.8 lbs 32.3 kg/m2 128/81 mm[Hg] Lab Results Date Name Specimen Result Interpretation Description Value Range Status Address 09/24/2018 Urinalysis, Leukocytes Negative In-House Dipstick Results: For Internal Use Only Nitrite negative In-House Results: For Internal Use Only Urobilinogen .2 In-House Results: For Internal Use Only Protein Trace In-House Results: For Internal Use Only Ph 7.0 In-House Results: For Internal Use Only Blood Negative In-House Results: For Internal Use Only Specific 1.025 In-House [place] Results: For Internal Use Only Ketone Trace In-House Results: For Internal Use Only Bilirubin Negative In-House Results: For Internal Use Only Glucose Negative In-House Results: For Internal Use Only Appearance Clear In-House Results: For Internal Use Only Color Yellow In-House Results: For Internal Use Only 08/31/2018 Urinalysis, Leukocytes Negative In-House Dipstick Results: For Internal Use Only Nitrite negative In-House Results: For Internal Use Only Urobilinogen .2 In-House Results: For Internal Use Only Protein Negative In-House Results: For Internal Use Only Ph 7.0 In-House Results: For Internal Use Only Blood Negative In-House Results: For Internal Use Only Specific 1.020 In-House [place] Results: For Internal Use Only Ketone Negative [...] For Internal Use Only Specific 1.020 In-House [place] Results: For Internal Use Only Ketone Negative [...] Acute Pelvic Pain Active 03/06/2018 Active 06/25/2018 Low Lying Placenta Active 09/12/2018 Gastroesophageal Reflux Disease without Active 09/24/2018 Esophagitis Recurrent Genital Herpes Simplex Active Encounter History of Recurrent Miscarriage - Not Active Delivered Procedures Date Name Performed by 08/27/2018 US, Obstetric, Maternal [facility] ( Scheduling) Evaluation + Anatomy [address] [place] [address] (Work [address]) 08/27/2018 US, Obstetric, Limited In-House Results For Internal Use Only [id number] 08/31/2018 US, Obstetric, Limited In-House Results For Internal Use Only [address]60 Vaccine List None recorded. Social History Smoking Status Never Smoker Past Encounters 09/24/2018 Gastroesophageal Reflux Disease without Esophagitis; Screening FRANK Joseph: [address] [place] [address], [address], [place] [address], Ph. [phone] 08/31/2018 or Effect of Maternal Injury; Screening Antonio Freeman MD: [address] [place] [address], [address], [place] [address], Ph. [phone] 08/27/2018 Screening; History of Recurrent Miscarriage - Not Delivered; Routine Care; Recurrent Miscarriage Mary Ellen Portillo MD: [address] [place] [address], [address], [place] [address], Ph. [phone] History of Present Illness Note: 20 week SAMMIE visit.Review of Systems: ROS as noted in the HPI Review of Systems None recorded. Physical Exam None recorded.
--- OUTSIDE RECORDS SUMMARY | 2018-11-15 13:09 | XMS REPORT | Encounter Summary ---
:1995 Author Care Team Providers Name Role Phone Antonio Lydia OTHER [phone] Reason for Visit Ob problem Instructions 1. Syncope urinalysis, dipstick cardiology referral CBC w/ auto diff T4, free, serum 2. Acute bacterial bronchitis Augmentin 875 mg-125 mg tablet 3. Discussion Note At least 15 min. of face to face time with the patient, >50% spent on counseling. Patient educational handouts: No information available. Plan of Care Reminders Provider Appointments OB Follow up Antonio Freeman, 10/22/2018 10:00AM Lab Urinalysis, In-House Results Dipstick 09/28/2018 CBC W/ Auto [place] Diff 09/28/2018 [facility] (Lab) T4, Free, [place] Serum 09/28/2018 [facility] (Lab) Referral Cardiology [facility] Referral 09/28/2018 Procedures None recorded. Surgeries None recorded. Imaging None recorded. Medications Name Start Date acetaminophen 300 mg-codeine 30 mg tablet Augmentin 875 mg-125 mg tablet Take 1 tablet every 12 hours by oral route for 7 days. heparin (porcine) 10,000 unit/mL injection solution Take [...] BMI Blood Pressure 5 ft 2 in 177.7 lbs 32.5 kg/m2 119/89 mm[Hg] Lab Results Date Name Specimen Result Interpretation Description Value Range Status Address 09/28/2018 CBC W/ High White Blood 11.7 K/uL 4.0-11.5 Final [place] Auto Diff Count K/uL [facility] (Lab): [address], [place] Normal Red Blood 4.42 M/uL 3.80-5.20 Final [place] Count M/uL [facility] (Lab): [address] [place] [address] Normal Hemoglobin 12.6 g/dL 10.5-15.7 Final [place] g/dL [facility] (Lab): [address] [place] [address] Normal Hematocrit 38.1 % 34.0-50.0 Final [place] % [facility] (Lab): [address] [place] [address] Normal Mean 86.3 fL 78-98 fL Final [place] Corpuscular [facility] Volume [facility] (Lab): [address] [place] [address] Normal Mean 28.5 pg 26.2-33.4 Final [place] Corpuscular pg [facility] Hemoglobin [facility] (Lab): [address] [place] [address] Normal Mean 33.0 g/dL 31.5-36.2 Final [place] Corpuscular g/dL [facility] HGB [facility] (Lab): [address] [place] [address] Normal Red Cell 12.2 % 11.5-15.5 Final [place] Distribution % [facility] (Lab): [address] [place] [address] Normal Platelet 224 K/uL 137-338 Final [place] Count K/uL [facility] (Lab): [address] [place] [address] Low Mean 8.2 fL 8.4-11.8 Final [place] Platelet fL [facility] (Lab): [address] [place] [address] Normal Neutrophils 69.4 % 44.4-80.1 Corrected [place] % % [facility] (Lab): [address] [place] [address] Normal Lymphocyte% 21.8 % 10.0-50.0 Final [place] % [facility] (Lab): [address] [place] [address] Normal [place] % 5.5 % 3.6-12.04 Final [place] % [facility] (Lab): [address] [place] [address] Normal Eos % 2.5 % 0.0-5.41 Final [place] % [facility] (Lab): [address] [place] [address] Normal Basophil % 0.7 % 0.0-0.79 Final [place] % [facility] (Lab): [address] [place] [address] 09/28/2018 Urinalysis Leukocytes Negative In-House , Dipstick Results: For Internal Use Only Nitrite negative In-House Results: For Internal Use Only Urobilinogen .2 In-House Results: For Internal Use Only Protein Trace In-House Results: For Internal Use Only Ph 7.5 In-House Results: For Internal Use Only Blood Negative In-House Results: For Internal Use Only Specific 1.020 In-House [place] Results: For Internal Use Only Ketone Negative In-House Results: For Internal Use Only Bilirubin Negative In-House Results: For Internal Use Only Glucose Negative In-House Results: For Internal Use Only Appearance Clear In-House Results: For Internal Use Only Color Yellow In-House Results: For Internal Use Only 09/24/2018 Urinalysis Leukocytes Negative In-House , Dipstick Results: For Internal Use Only Nitrite negative In-House Results: For Internal Use Only Urobilinogen .2 In-House Results: For Internal Use Only Protein Trace In-House Results: For Internal Use Only Ph 7.0 In-House Results: For Internal Use Only Blood Negative In-House Results: For Internal Use Only Specific 1.025 In-House [place] Results: For Internal Use Only Ketone Trace In-House Results: For Internal Use Only Bilirubin Negative In-House Results: For Internal Use Only Glucose Negative In-House Results: For Internal Use Only Appearance Clear In-House Results: For Internal Use Only Color Yellow In-House Results: For Internal Use Only 08/31/2018 Urinalysis Leukocytes Negative In-House , Dipstick Results: For Internal Use Only Nitrite negative In-House Results: For Internal Use Only Urobilinogen .2 In-House Results: For Internal Use Only Protein Negative In-House Results: For Internal Use Only Ph 7.0 In-House Results: For Internal Use Only Blood Negative In-House Results: For Internal Use Only Specific 1.020 In-House [place] Results: For Internal Use Only Ketone Negative In-House Results: For Internal Use Only Bilirubin Negative In-House Results: For Internal Use Only Glucose Negative In-House Results: For Internal Use Only Appearance Clear In-House Results: For Internal Use Only Color Yellow In-House Results: For Internal Use Only US, No In-House Obstetric, observation Results: Limited recorded. For Internal Use Only Allergies Code [...] Active Delivered Procedures Date Name Performed by 08/31/2018 US, Obstetric, Limited In-House Results For Internal Use Only [address] Vaccine List None recorded. Social History Smoking Status Never Smoker Past Encounters 09/28/2018 Syncope; Acute Bacterial Bronchitis; Antonio Freeman MD: [address], [address], [place] [address], Ph. [phone] 09/24/2018 Gastroesophageal Reflux Disease without Esophagitis; Screening FRANK Joseph: [address], [address], [place] [address], Ph. [phone] 08/31/2018 or Effect of Maternal Injury; Screening Antonio Freeman MD: [address] [place] [address], [address], [place] [address], Ph. [phone] History of Present Illness None recorded. Review of Systems None recorded. Physical Exam None recorded.
--- OUTSIDE RECORDS SUMMARY | 2018-11-15 13:10 | XMS REPORT | Encounter Summary ---
:1995 Author Care Team Providers Name Role Phone Antonio Freeman OTHER [phone] Reason for Visit ob 24 week visit Instructions 1. 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 Discussed labor symptoms and expected movement. Encouraged adequate fluid intake and daily PNV and iron. Patient educational handouts: No information available. Plan of Care Reminders Provider Appointments OB Visits 28 Mary Ellen Abe Weeks 11/13/2018 MD Bandar 8:45AM OB Visits 28 Sonogram Weeks 11/13/2018 8:45AM Lab Urinalysis, In-House Results Dipstick 10/23/2018 Referral None recorded. Procedures None recorded. Surgeries None recorded. Imaging None recorded. Medications Name Start Date acetaminophen 300 mg-codeine 30 mg tablet amoxicillin 875 mg-potassium clavulanate 125 mg tablet Take 1 tablet every 12 [...] BMI Blood Pressure 5 ft 2 in 181.3 lbs 33.2 kg/m2 123/82 mm[Hg] Lab Results Date Name Specimen Result Interpretation Description Value Range Status Address 10/23/2018 Urinalysis, Leukocytes Negative In-House Dipstick Results: For Internal Use Only Nitrite negative In-House Results: For Internal Use Only Urobilinogen 1 In-House Results: For Internal Use Only Protein 30 In-House Results: For Internal Use Only Ph 7.5 In-House Results: For Internal Use Only Blood Negative In-House Results: For Internal Use Only Specific 1.020 In-House [place] Results: For Internal Use Only Ketone Negative In-House Results: For Internal Use Only Bilirubin Negative In-House Results: For Internal Use Only Glucose Negative In-House Results: For Internal Use Only Appearance Clear In-House Results: For Internal Use Only Color Yellow In-House Results: For Internal Use Only 09/28/2018 CBC W/ Auto High White Blood 11.7 K/uL 4.0- Final [place] Diff Count 11.5 [facility] [address] [place] [address] Normal Red Blood 4.42 M/uL 3.80 Final [place] Count -5.2 [facility] 0 [facility] (Lab): [address] [place] [address] Normal Hemoglobin 12.6 g/dL 10.5 Final [place] -15. [facility] 7 Medical g/dL [facility] (Lab): [address] [place] [address] Normal Hematocrit 38.1 % 34.0 Final [place] -50. [facility] 0 % [facility] (Lab): [address] [place] [address] Normal Mean 86.3 fL 78-9 Final [place] Corpuscular 8 fL [facility] Volume [facility] (Lab): [address] [place] [address] Normal Mean 28.5 pg 26.2 Final [place] Corpuscular -33. [facility] Hemoglobin 4 pg [facility] (Lab): [address] [place] [address] Normal Mean 33.0 g/dL 31.5 Final [place] Corpuscular -36. [facility] HGB Conc 2 Medical g/dL [facility] (Lab): [address] [place] [address] Normal Red Cell 12.2 % 11.5 Final [place] Distribution -15. [facility] Width 5 % [facility] (Lab): [address] [place] [address] Normal Platelet 224 K/uL 137- Final [facility] Count 338 [facility] (Lab): [address] [place] [address] Low Mean Platelet 8.2 fL 8.4- Final [facility] Volume 11.8 [facility] fL [facility] (Lab): [address] [place] [address] Normal Neutrophils % 69.4 % 44.4 Corrected [facility] -80. [facility] 1 % [facility] (Lab): [address] [place] [address] Normal Lymphocyte% 21.8 % 10.0 Final [facility] -50. [facility] 0 % [facility] (Lab): [address] [place] [address] Normal [place] % 5.5 % 3.6- Final [facility] 12.0 [facility] 4 % [facility] (Lab): [address] [place] [address] Normal Eos % 2.5 % 0.0- Final [facility] 5.41 [facility] % [facility] (Lab): [address] [place] [address] Normal Basophil % 0.7 % 0.0- Final [place] 0.79 [facility] (Lab): [address] [place] [address] 09/28/2018 Urinalysis, Leukocytes Negative In-House Dipstick Results: For Internal Use Only Nitrite negative In-House Results: For Internal Use Only Urobilinogen .2 In-House Results: For Internal Use Only Protein Trace In-House Results: For Internal Use Only Ph 7.5 In-House Results: For Internal Use Only Blood Negative In-House Results: For Internal Use Only Specific 1.020 In-House [place] Results: For Internal Use Only Ketone Negative In-House Results: For Internal Use Only Bilirubin Negative In-House Results: For Internal Use Only Glucose Negative In-House Results: For Internal Use Only Appearance Clear In-House Results: For Internal Use Only Color Yellow In-House Results: For Internal Use Only 09/24/2018 Urinalysis, Leukocytes Negative In-House Dipstick Results: For Internal Use Only Nitrite negative In-House Results: For Internal Use Only Urobilinogen .2 In-House Results: For Internal Use Only Protein Trace In-House Results: For Internal Use Only Ph 7.0 In-House Results: For Internal Use Only Blood Negative In-House Results: For Internal Use Only Specific 1.025 In-House [place] Results: For Internal Use Only Ketone Trace In-House Results: For Internal Use Only Bilirubin Negative In-House Results: For Internal Use Only Glucose Negative In-House Results: For Internal Use Only Appearance Clear In-House Results: For Internal Use Only Color Yellow In-House Results: For Internal Use Only Allergies Code [...] Recurrent Miscarriage - Not Active Delivered Procedures None recorded. Vaccine List None recorded. Social History Smoking Status Never Smoker Past Encounters 10/23/2018 History of Recurrent Miscarriage - Not Delivered Antonio Freeman MD: [address], [address], [place] [address], Ph. [phone] 09/28/2018 Syncope; Acute Bacterial Bronchitis; Antonio Freeman MD: [address], [address], [place] [address], Ph. [phone] 09/24/2018 Gastroesophageal Reflux Disease without Esophagitis; Screening FRANK Joseph: [address] [facility], [address], [place] [address], Ph. [phone] History of Present Illness None recorded. Review of Systems None recorded. Physical Exam None recorded.
[2018-11-15 14:23] LABS: Absolute Lymphocytes (CBC) 2.6 K/uL (0.7-4.9); Basophils % 0.3 % (0-1.3); Hematocrit 35.5 % (36.0-45.0); Lymphocytes % 22.2 % (15.3-44.8); MPV 8.7 fL (7.6-11.3); Monocytes % 6.6 % (3.3-12.3); RBC Red Blood Cell Count 4.29 M/uL (3.86-4.86)
[2018-11-15 14:34] LABS: BUN Blood Urea Nitrogen 4 mg/dL (7-18); Bicarbonate 26 mmol/L (21-32); Glucose Level 79 mg/dL (74-106); Potassium 3.4 mmol/L (3.5-5.1); Sodium Level 141 mmol/L (136-145)
[2018-11-15 14:43] LABS: Urine RBC >50 /HPF (NONE SEEN)
[2018-11-15 14:44] LABS: Urine Bacteria >50 /HPF (<20); Urine Culture Reflex Order NOT NEEDED
[2018-11-15] MEDS ORDERED: NA CHLORIDE 0.9% 1,000 ML ONE (14:53)
[2018-11-15] MEDS ORDERED: CEFTRIAXONE/SWI 1gm 1 GM/10 ML SYR ONE (15:07)
--- NOTE | 2018-11-15 15:07 | EDPHYS ---
Physician Documentation [facility] Name: Vicenta Zarate Age: 23 yrs Sex: Female : 1995 Arrival Date: 11/15/2018 Time: 13:07 Bed Treatment Private MD: ED Physician Thuan Proctor HPI: 11/15 14:03 This 23 yrs old Female presents to ER via Ambulatory with complaints of Pain snw With Urination. 14:03 The patient presents with urinary symptoms, dysuria, frequency, urgency. Onset: The snw symptoms/episode began/occurred suddenly, 3 day(s) ago, and became worse and became persistent. Associated signs and symptoms: The patient has no apparent associated signs or symptoms. Severity of symptoms: At their worst the symptoms were moderate, severe. It is unknown whether or not the patient has had similar symptoms in the past. seeing OB regularly, feeling baby move, no vaginal bleeding. Historical: - Allergies: 13:38 No Known Allergies; ph - Home Meds: 13:38 Vitamin Oral [Active]; ph - PMHx: 13:38 miscarriages; ph - PSHx: 13:38 None; ph - Immunization history:: Adult Immunizations unknown. - Social history:: Smoking status: Patient/guardian denies using tobacco. - Ebola Screening: : No symptoms or risks identified at this time. ROS: 14:02 Constitutional: Negative for fever, chills, and weight loss, Eyes: Negative for injury, snw pain, redness, and discharge, ENT: Negative for injury, pain, and discharge, Neck: Negative for injury, pain, and swelling, Cardiovascular: Negative for chest pain, palpitations, and edema, Respiratory: Negative for shortness of breath, cough, wheezing, and pleuritic chest pain, Abdomen/GI: Negative for abdominal pain, nausea, vomiting, diarrhea, and constipation, Back: Negative for injury and pain, MS/Extremity: Negative for injury and deformity, Skin: Negative for injury, rash, and discoloration, Neuro: Negative for headache, weakness, numbness, tingling, and seizure. 14:02 : Positive for urinary symptoms, small amounts, burning with urination, difficulty urinating, Negative for hematuria, pelvic pain, flank pain, vaginal bleeding, vaginal discharge. Exam: 14:02 Constitutional: This is a well developed, well nourished patient who is awake, alert, snw and in no acute distress. Head/Face: Normocephalic, atraumatic. Eyes: Pupils equal round and reactive to light, extra-ocular motions intact. Lids and lashes normal. Conjunctiva and sclera are non-icteric and not injected. Cornea within normal limits. Periorbital areas with no swelling, redness, or edema. ENT: Nares patent. No nasal discharge, no septal abnormalities noted. Tympanic membranes are normal and external auditory canals are clear. Oropharynx with no redness, swelling, or masses, exudates, or evidence of obstruction, uvula midline. Mucous membranes moist. Neck: Trachea midline, no thyromegaly or masses palpated, and no cervical lymphadenopathy. Supple, full range of motion without nuchal rigidity, or vertebral point tenderness. No Meningismus. Chest/axilla: Normal chest wall appearance and motion. Nontender with no deformity. No lesions are appreciated. Respiratory: Lungs have equal breath sounds bilaterally, clear to auscultation and percussion. No rales, rhonchi or wheezes noted. No increased work of breathing, no retractions or nasal flaring. Back: No spinal tenderness. No costovertebral tenderness. Full range of motion. Skin: Warm, dry with normal turgor. Normal color with no rashes, no lesions, and no evidence of cellulitis. MS/ Extremity: Pulses equal, no cyanosis. Neurovascular intact. Full, normal range of motion. Neuro: Awake and alert, GCS 15, oriented to person, place, time, and situation. Cranial nerves II-XII grossly intact. Motor strength 5/5 in all extremities. Sensory grossly intact. Cerebellar exam normal. Normal gait. Psych: Awake, alert, with orientation to person, place and time. Behavior, mood, and affect are within normal limits. 14:02 Cardiovascular: Rate: tachycardic, Heart sounds: normal. 14:02 Abdomen/GI: Inspection: gravid appearance, is noted, Bowel sounds: normal, in all quadrants, Palpation: abdomen is soft and non-tender. Vital Signs: 13:38 BP 119 / 80; Pulse 114; Resp 18; Temp 98.8(O); Pulse Ox 97% on R/A; Weight 81.65 kg; ph Height 5 ft. 2 in. (157.48 cm); 15:10 BP 117 / 79; Pulse 88; Resp 16; Pulse Ox 100% on R/A; Pain 0/10; iw 13:38 Body Mass Index 32.92 (81.65 kg, 157.48 cm) ph MDM: 13:35 Patient medically screened. snw 15:08 Data reviewed: vital signs, nurses notes. Data interpreted: Pulse oximetry: on room air snw is 97 %. Interpretation: normal. Counseling: I had a detailed discussion with the patient and/or guardian regarding: the historical points, exam findings, and any diagnostic results supporting the discharge/admit diagnosis, lab results, the need for outpatient follow up, to return to the emergency department if symptoms worsen or persist or if there are any questions or concerns that arise at home. Special discussion: I have referred the patient to see his PCP for further evaluation of high blood pressure. Based on the history and exam findings, there is no indication for further emergent testing or inpatient evaluation. I discussed with the patient/guardian the need to see the OB Gyne specialist for further evaluation of the symptoms. I discussed with the patient/guardian the need to see the primary care provider for further evaluation of the symptoms. 11/15 13:36 Order name: Urine Culture [facility] 11/15 13:36 Order name: Urine Microscopic Only; Complete Time: 14:45 snw 11/15 13:44 Order name: CBC with Diff; Complete Time: 14:27 [facility] 11/15 13:44 Order name: Chem 7; Complete Time: 14:34 [facility] 11/15 13:44 Order name: Blood Culture Adult (2) [facility] 11/15 13:36 Order name: Urine Test (obtain specimen); Complete Time: 14:46 w 11/15 13:36 Order name: Urine Dipstick-Ancillary (obtain specimen); Complete Time: 14:46 [facility] 11/15 14:00 Order name: FHT's; Complete Time: 19:22 [facility] 11/15 14:45 Order name: Recheck Vital Signs; Complete Time: 15:18 snw Administered Medications: 14:41 Drug: NS 0.9% 1000 ml Route: IV; Rate: 1 bolus; Site: right antecubital; iw 15:08 Drug: Rocephin 1 grams Route: IV; Rate: calculated rate; Site: right antecubital; iw Disposition: 19:05 Co-signature as Attending Physician, Thuan Proctor MD I agree with the assessment and kdr plan of care. Disposition: 11/15/18 15:07 Discharged to Home. Impression: Urinary tract infection, site not specified, state. - Condition is Stable. - Discharge Instructions: Dehydration, Adult, and Urinary Tract Infection, Rehydration, Adult. - Prescriptions for Macrobid 100 mg Oral Capsule - take 1 capsule by ORAL route every 12 hours for 10 days; 20 capsule. - Medication Reconciliation Form, Thank You Letter, Antibiotic Education, Prescription Opioid Use form. - Follow up: Emergency Department; When: As needed; Reason: Worsening of condition. Follow up: Private Physician; When: 2 - 3 days; Reason: Recheck today's complaints, Continuance of care, Re-evaluation by your physician. Signatures: Dispatcher [employer] EDThuan Salinas MD MD [facility] Radha Urbina, WEBBING INSPECTOR-C WEBBING INSPECTOR-[employer] Michelle West, RN RN iw Kristin Womack RN RN ph Corrections: (The following items were deleted from the chart) 15:19 15:07 11/15/2018 15:07 Discharged to Home. Impression: Urinary tract infection, site iw not specified; state. Condition is Stable. Discharge Instructions: Dehydration, Adult, and Urinary Tract Infection, Rehydration, Adult. Prescriptions for Macrobid 100 mg Oral Capsule - take 1 capsule by ORAL route every 12 hours for 10 days; 20 capsule. and Forms are Medication Reconciliation Form, Thank You Letter, Antibiotic Education, Prescription Opioid Use. Follow up: Emergency Department; When: As needed; Reason: Worsening of condition. Follow up: Private Physician; When: 2 - 3 days; Reason: Recheck today's complaints, Continuance of care, Re-evaluation by your physician. snw
--- NOTE | 2018-11-15 15:07 | ER ---
Nurse's Notes [facility] Name: Vicenta Zarate Age: 23 yrs Sex: Female : 1995 Arrival Date: 11/15/2018 Time: 13:07 Bed Treatment Private MD: Diagnosis: Urinary tract infection, site not specified; state Presentation: 11/15 13:33 Presenting complaint: Presenting complaint: Patient states: Suprapubic pain, frequency, ph and burning w/ urination x 2 days, approx 28 weeks , states, " I tried to go see my Dr but he couldn't get me in today." Denies fever, N/V/D states, " The pain was really bad so I took an Azo.". 13:36 Transition of care: patient was not received from another setting of care. Onset of ph symptoms was November 15, 2018. Risk Assessment: Do you want to hurt yourself or someone else? Patient reports no desire to harm self or others. Initial Sepsis Screen: Does the patient meet any 2 criteria? No. Patient's initial sepsis screen is negative. Does the patient have a suspected source of infection? Yes: Dysuria/Frequency/Urgency/UTI. Care prior to arrival: None. 13:36 Method Of Arrival: Ambulatory ph 13:36 Acuity: LOLY 4 ph Historical: - Allergies: 13:38 No Known Allergies; ph - Home Meds: 13:38 Vitamin Oral [Active]; ph - PMHx: 13:38 miscarriages; ph - PSHx: 13:38 None; ph - Immunization history:: Adult Immunizations unknown. - Social history:: Smoking status: Patient/guardian denies using tobacco. - Ebola Screening: : No symptoms or risks identified at this time. Screenin:00 Abuse screen: Denies threats or abuse. Denies injuries from another. Nutritional ph screening: No deficits noted. Tuberculosis screening: No symptoms or risk factors identified. Fall Risk None identified. Assessment: 14:00 General: Appears in no apparent distress. uncomfortable, well groomed, Behavior is ph calm, cooperative, appropriate for age, Denies fever, chills. Pain: Complains of pain in suprapubic area. Neuro: Level of Consciousness is awake, alert, obeys commands, Oriented to person, place, time, situation. Cardiovascular: Capillary refill < 3 seconds in bilateral fingers Patient's skin is warm and dry. Respiratory: Airway is patent Respiratory effort is even, unlabored. GI: No signs and/or symptoms were reported involving the gastrointestinal system. Patient currently denies diarrhea, nausea, vomiting. : Reports burning with urination, pain in suprapubic area with urination, urinary frequency, Denies vaginal bleeding. Derm: Skin is intact, is healthy with good turgor, Skin is pink, warm \\T\\ dry. 15:11 Reassessment: Patient appears in no apparent distress at this time. Patient and/or iw family updated on plan of care and expected duration. Pain level reassessed. Patient is alert, oriented x 3, equal unlabored respirations, skin warm/dry/pink. Vital Signs: 13:38 BP 119 / 80; Pulse 114; Resp 18; Temp 98.8(O); Pulse Ox 97% on R/A; Weight 81.65 kg; ph Height 5 ft. 2 in. (157.48 cm); 15:10 BP 117 / 79; Pulse 88; Resp 16; Pulse Ox 100% on R/A; Pain 0/10; iw 13:38 Body Mass Index 32.92 (81.65 kg, 157.48 cm) ph Vitals: 14:49 Heart Tones: 153. [facility] ED Course: 13:07 Patient arrived in ED. as 13:35 Radha Urbina FNP-C is [facility]. snw 13:35 Thuan Proctor MD is Attending Physician. snw 13:36 Kristin Womack, ANEL is Primary Nurse. ph 13:38 Triage completed. ph 13:39 Arm band placed on Patient placed in an exam room, on a stretcher. ph 14:00 Inserted saline lock: 22 gauge in right antecubital area, using aseptic technique. [facility] Blood collected. 14:15 Initial lab(s) drawn, by la, sent to lab. First set of blood cultures drawn by me, [facility] Second set of blood cultures drawn. 14:24 Patient has correct armband on for positive identification. Bed in low position. Call [facility] light in reach. 15:00 No provider procedures requiring assistance completed. IV discontinued, intact, ph bleeding controlled, No redness/swelling at site. Pressure dressing applied. Administered Medications: 14:41 Drug: NS 0.9% 1000 ml Route: IV; Rate: 1 bolus; Site: right antecubital; iw 15:08 Drug: Rocephin 1 grams Route: IV; Rate: calculated rate; Site: right antecubital; iw Outcome: 15:07 Discharge ordered by . snjessy 15:18 Discharged to home ambulatory. iw 15:18 Condition: good 15:18 Discharge instructions given to patient, Instructed on discharge instructions, follow up and referral plans. Demonstrated understanding of instructions, follow-up care, medications, Prescriptions given X 1. 15:19 Patient left the ED. iw Signatures: Radha Urbina, RESTAURANT AREA DIRECTOR-C RESTAURANT AREA DIRECTOR-CsnAliya Perla as Michelle West RN RN Kristin Womack RN RN [place] [id number] Corrections: (The following items were deleted from the chart) 13:38 13:33 Presenting complaint: ph ph 15:00 14:49 Heart Tones: 135 mh5 mh5
== END 2018-11-15 15:19 | disposition home or self-care (01) ==
LOC: ER 13:06
DX: O23.40 Unspecified infection of urinary tract in pregnancy, unspecified trimester (principal); Z3A.00 Weeks of gestation of pregnancy not specified
CPT/HCPCS: 36415; 80048; 81015; 85025; 87040; 87086; 87088; 96374; 99284; J0696; J7030

== ENCOUNTER 2019-01-30 20:48 | Inpatient (IN) | payer OTHER ==
[2019-01-30] MEDS ORDERED: FUROSEMIDE 20 MG/ 2ML VIAL ONE (22:29)
[2019-01-30 23:26] LABS: Protime INR 0.99
[2019-01-30 23:27] LABS: Absolute Lymphocytes (CBC) 2.3 K/uL (0.7-4.9); Basophils % 0.4 % (0-1.3); Hematocrit 28.9 % (36.0-45.0); Lymphocytes % 22.3 % (15.3-44.8); MPV 9.8 fL (7.6-11.3); RBC Red Blood Cell Count 3.62 M/uL (3.86-4.86)
[2019-01-31 00:07] LABS: ALT/SGPT 37 U/L (12-78); AST/SGOT 43 U/L (15-37); Albumin 2.1 g/dL (3.4-5.0); Alkaline Phosphatase 129 U/L (45-117); BUN Blood Urea Nitrogen 8 mg/dL (7-18); Bicarbonate 25 mmol/L (21-32); Bilirubin Direct < 0.1 mg/dL (0-0.2); Bilirubin Total 0.2 mg/dL (0.2-1.0); Glucose Level 76 mg/dL (74-106); Magnesium 1.5 mg/dL (1.8-2.4); NT PRO-BNP 1170 pg/mL (<125); Protein, Total 5.7 g/dL (6.4-8.2); Sodium Level 143 mmol/L (136-145); Troponin (Emerg Dept Use Only) < 0.02 ng/mL (0.0-0.045)
[2019-01-31 00:09] LABS: Potassium 2.9 mmol/L (3.5-5.1)
[2019-01-31] MEDS ORDERED: MAGNESIUM SULFATE 1 gm IVPB 1 GM/100 ML BAG IV ONE ×2 (00:30→05:57)
[2019-01-31] MEDS ORDERED: POTASSIUM 25 MEQ EFFERV TAB ONE (00:30)
[2019-01-31] MEDS ORDERED: NA CHLORIDE 0.9% 250 ML ONE (00:30)
[2019-01-31] MEDS ORDERED: KCL 20 MEQ/100 mL IVPB 20 MEQ/100 ML BAG IV ONE (00:31)
[2019-01-31] MEDS ORDERED: ONDANSETRON 4 MG/2 ML VIAL IV PRN (00:58)
[2019-01-31] MEDS ORDERED: ACETAMINOPHEN 500 MG TAB PO PRN (00:58)
[2019-01-31] MEDS ORDERED: LORazepam 2 MG/ML VIAL ONE (01:40)
[2019-01-31] MEDS ORDERED: FENTANYL CITR 100 MCG/2 ML ONE (01:41)
--- NOTE | 2019-01-31 01:48 | ER ---
Nurse's Notes [facility] Name: Vicenta Zarate Age: 23 yrs Sex: Female : 1995 Arrival Date: 01/30/2019 Time: 21:02 Bed 5 Private MD: Diagnosis: Fluid overload, unspecified;Hypomagnesemia;Hypokalemia Presentation: 01/30 21:04 Presenting complaint: Patient states: leg swelling, SOB since yesterday prior to ak1 discharge from [facility] s/p delivery. non pitting edema to bilateral lower legs. no resp distress noted during triage. pt stated she had pre eclampsia and was discharged with a 153/[address] Juan in [facility] delivered baby. pt stated she had a blood transfusion yesterday prior to discharge. Transition of care: patient was not received from another setting of care. Onset of symptoms was January 29, 2019. Risk Assessment: Do you want to hurt yourself or someone else? Patient reports no desire to harm self or others. Initial Sepsis Screen: Does the patient meet any 2 criteria? No. Patient's initial sepsis screen is negative. Does the patient have a suspected source of infection? No. Patient's initial sepsis screen is negative. Care prior to arrival: None. 21:04 Method Of Arrival: Wheelchair ak1 21:04 Acuity: LOLY 2 bb Triage Assessment: 21:06 General: Appears in no apparent distress. Behavior is calm, cooperative. Respiratory: ak1 Reports shortness of breath at rest since yesterday Airway is patent Breath sounds are clear bilaterally. the patient has mild shortness of breath. 22:59 Respiratory: Onset: The symptoms/episode began/occurred at an unknown time. 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 - Social history:: Smoking status: Patient/guardian denies using tobacco. - Ebola Screening: : No symptoms or risks identified at this time. Screenin:46 Abuse screen: Denies threats or abuse. Nutritional screening: No deficits noted. bb Tuberculosis screening: No symptoms or risk factors identified. Fall Risk None identified. Assessment: 21:46 General: Appears in no apparent distress. uncomfortable, Behavior is calm, cooperative. bb Pain: Denies pain. Neuro: Level of Consciousness is awake, alert, obeys commands, Oriented to person, place, time, situation. Cardiovascular: Reports shortness of breath, bilateral lower extremity edema Heart tones S1 S2 present Capillary refill < 3 seconds Patient's skin is warm and dry. Pulses are palpable in right radial artery and left radial artery Edema is 2+ to left ankle, left foot, right ankle and right foot pitting to left ankle, left foot, right ankle and right foot Rhythm is regular. Respiratory: Respiratory effort is unlabored, Respiratory pattern is tachypnea Breath sounds are clear bilaterally. GI: Reports recent history of emergency for pre-eclampsia. Derm: Skin is dry, Skin is pale, Skin temperature is warm. Musculoskeletal: Circulation, motion, and sensation intact. Swelling present in right leg and left leg. 23:38 Reassessment: Patient is alert, oriented x 3, equal unlabored respirations, skin bb warm/dry/pink. pt resting quietly, IV site intact, guaman catheter intact to bedside drain, awaiting lab results. 01/31 00:30 Reassessment: Patient is alert, oriented x 3, equal unlabored respirations, skin bb warm/dry/pink. IV site intact, friend at bedside. 01:30 Reassessment: pt upset on her phone crying after she was told she was to be admitted. bb Pt medicated see JUL. Vital Signs: 01/30 21:03 BP 161 / 94; Pulse 80; Resp 16; Temp 97.9; Pulse Ox 98% on R/A; Weight 92.99 kg (R); ak1 Height 5 ft. 2 in. (157.48 cm) (R); Pain 9/10; 22:59 BP 160 / 108; Pulse 84; Resp 26 S; Pulse Ox 92% on R/A; bb 23:28 BP 156 / 97; Pulse 74; Resp 22 S; Pulse Ox 95% on R/A; bb 01/31 01:47 BP 158 / 97; Pulse 103; Resp 16; Pulse Ox 98% on R/A; tl1 04:37 BP 148 / 98; Pulse 101; Resp 26; Temp 98.7(O); Pulse Ox 97% on NC; jb5 01/30 21:03 Body Mass Index 37.49 (92.99 kg, 157.48 cm) ak1 ED Course: 01/30 21:02 Patient arrived in ED. ds1 21:03 Arm band placed on Patient placed in waiting room, in a wheelchair, Patient notified of ak1 wait time. 21:06 Triage completed. ak1 21:08 Radha Urbina FNP-C is PHCP. snw 21:08 Guzman Sykes MD is Attending Physician. snw 21:26 Chest Pa And Lat (2 Views) XRAY In Process Unspecified. EDMS 21:46 Patient has correct armband on for positive identification. Placed in gown. Bed in low bb position. Call light in reach. Side rails up X 1. Adult w/ patient. monitoring analyst on. Pulse ox on. NIBP on. 22:30 Initial lab(s) drawn, by me, sent to lab. First set of blood cultures drawn by me. bb Inserted saline lock: 20 gauge in right antecubital area, using aseptic technique. Blood collected. 22:45 Second set of blood cultures drawn by me. bb 22:55 Guaman cath inserted, using sterile technique, 16 Fr., by me, balloon inflated, to bb gravity drainage, clamped. urine specimen collected. returned clear yellow urine. Patient tolerated well. 22:57 Renetta Craven RN is Primary Nurse. bb 23:16 Warm blanket given. given a sanitary napkin and placed accordingly. jb5 01/31 00:08 Notified Nurse Practitioner and/or Physician Mems Device Scientist of a critical lab result(s), bb potassium of 2.9 Radha Urbina DROSOPHERE OPERATOR notified. 01:10 Isidoro Espinal MD is Hospitalizing Provider. snw 01:59 No provider procedures requiring assistance completed. Patient admitted, IV remains in bb place. 04:35 Oxygen administration via nasal cannula \T\ 3L/min Response to oxygen therapy: symptoms jb5 improved. Administered Medications: 01/30 22:45 Drug: Lasix 20 mg Route: IVP; Site: right antecubital; bb 01/31 00:06 Follow up: Response: No adverse reaction bb 00:29 Drug: Magnesium Sulfate 1 grams Route: IVPB; Infused Over: 1 hrs; Site: right bb antecubital; 01:30 Follow up: IV Status: Completed infusion; IV Intake: 100ml bb 00:29 Drug: Potassium Chloride 20 mEq Route: IV; Rate: calculated rate; Site: right bb antecubital; 02:30 Follow up: IV Status: Completed infusion; IV Intake: 100ml bb 00:29 Drug: Potassium Effervescent Tablet 50 mEq Route: PO; bb 01:33 Follow up: Response: No adverse reaction bb 01:42 Drug: Ativan 1 mg Route: IVP; Infused Over: 2 mins; Site: right antecubital; tl1 03:40 Follow up: Response: No adverse reaction; Marked relief of symptoms bb 01:42 Drug: fentaNYL (PF) 25 mcg Route: IVP; Infused Over: 2 mins; Site: right antecubital; tl1 02:00 Follow up: Response: Marked relief of symptoms; Pain is decreased; RASS: Alert and Calm bb (0) 07:18 Drug: Motrin 800 mg Route: PO; aa5 Intake: 01:30 IV: 100ml; Total: 100ml. bb 02:30 IV: 100ml; Total: 200ml. bb Output: 01/30 23:38 Urine: 1700ml (Guaman); Total: 1700ml. bb 01/31 00:06 Urine: 650ml (Guaman); Total: 2350ml. bb 02:12 Urine: 700ml (Guaman); Total: 3050ml. bb Outcome: 01:11 Decision to Hospitalize by Provider. snw 01:59 Instructed on the need for admit. bb 03:41 Admitted to ER Hold. Please see [facility] for further documentation. bb 03:41 Condition: stable 07:40 Admitted to Med/surg accompanied by tech, via wheelchair, with chart. aa5 07:40 Condition: stable 07:40 Instructed on the need for admit, Demonstrated understanding of instructions. 07:55 Patient left the ED. aa5 Signatures: Dispatcher [employer] EDMS Radha Urbina, WILLEM-C TOOL FILER-CsnYamel Rivera ds1 Renetta Craven RN RN bb Anne Kumar, RN RN aa5 Barbara Dupree RN RN tl1 Angeles Nichols RN RN ak1 Christina Merritt jb5 Corrections: (The following items were deleted from the chart) 01/30 21:46 21:04 Acuity: LOLY 3 ak1 bb 01/31 08:05 08:05 Patient left the ED. aa5 aa5
--- NOTE | 2019-01-31 01:49 | EDPHYS ---
Physician Documentation [facility] Name: Vicenta Zarate Age: 23 yrs Sex: Female : 1995 Arrival Date: 01/30/2019 Time: 21:02 Bed 5 Private MD: ED Physician Guzman Sykes HPI: 01/30 22:38 This 23 yrs old Female presents to ER via Wheelchair with complaints of Leg snw Swelling, High Blood Pressure, Shortness Of Breath. 22:38 The patient has elevated blood pressure and discovered this pre-eclampsia, delivered by snw at [facility] on 01/27/19. Onset: The symptoms/episode began/occurred acutely. Associated signs and symptoms: Pertinent positives: lightheadedness, shortness of breath, HTN, severe edema, fatigue. Severity of symptoms: At its worst the blood pressure was 200 mm Hg. It is unknown whether or not the patient has had similar symptoms in the past. The patient has been recently seen by a physician: discharged from [facility] yesterday after 2 units of blood. 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 - Social history:: Smoking status: Patient/guardian denies using tobacco. - Ebola Screening: : No symptoms or risks identified at this time. ROS: 22:37 Eyes: Negative for injury, pain, redness, and discharge, ENT: Negative for injury, snw pain, and discharge, Neck: Negative for injury, pain, and swelling, Cardiovascular: Negative for chest pain, palpitations, and edema. 22:37 Abdomen/GI: Negative for abdominal pain, nausea, vomiting, diarrhea, and constipation, Back: Negative for injury and pain, : Negative for injury, bleeding, discharge, and swelling. 22:37 Skin: Negative for injury, rash, and discoloration, Neuro: Negative for headache, weakness, numbness, tingling, and seizure, Psych: Negative for depression, anxiety, suicide ideation, homicidal ideation, and hallucinations. 22:37 Constitutional: Positive for body aches, fatigue, malaise. 22:37 Respiratory: Positive for shortness of breath, at rest. 22:37 MS/extremity: Positive for swelling, tenderness. Exam: 22:31 Constitutional: This is a well developed, well nourished patient who is awake, alert, snw and in no acute distress. Head/Face: Normocephalic, atraumatic. Eyes: Pupils equal round and reactive to light, extra-ocular motions intact. Lids and lashes normal. Conjunctiva and sclera are non-icteric and not injected. Cornea within normal limits. Periorbital areas with no swelling, redness, or edema. ENT: Nares patent. No nasal discharge, no septal abnormalities noted. Tympanic membranes are normal and external auditory canals are clear. Oropharynx with no redness, swelling, or masses, exudates, or evidence of obstruction, uvula midline. Mucous membranes moist. Neck: Trachea midline, no thyromegaly or masses palpated, and no cervical lymphadenopathy. Supple, full range of motion without nuchal rigidity, or vertebral point tenderness. No Meningismus. Chest/axilla: Normal chest wall appearance and motion. Nontender with no deformity. No lesions are appreciated. Cardiovascular: Regular rate and rhythm with a normal S1 and S2. No gallops, murmurs, or rubs. Normal PMI, no JVD. No pulse deficits. significant edema, hx of coarctation 22:31 Back: No spinal tenderness. No costovertebral tenderness. Full range of motion. Skin: Warm, dry with normal turgor. Normal color with no rashes, no lesions, and no evidence of cellulitis. Neuro: Awake and alert, GCS 15, oriented to person, place, time, and situation. Cranial nerves II-XII grossly intact. Motor strength 5/5 in all extremities. Sensory grossly intact. Cerebellar exam normal. Normal gait. Psych: Awake, alert, with orientation to person, place and time. Behavior, mood, and affect are within normal limits. 22:31 Respiratory: the patient does not display signs of respiratory distress, Respirations: normal, Breath sounds: decreased breath sounds, that are mild, are scattered. 22:31 Abdomen/GI: Inspection: abdomen appears normal, Bowel sounds: normal, Palpation: fundus at umbilicus, incision without discharge or erythema. 22:31 Musculoskeletal/extremity: pulses present to all extremities but pt with tight skin, tingling to digits, edema. Vital Signs: 21:03 BP 161 / 94; Pulse 80; Resp 16; Temp 97.9; Pulse Ox 98% on R/A; Weight 92.99 kg (R); ak1 Height 5 ft. 2 in. (157.48 cm) (R); Pain 9/10; 22:59 BP 160 / 108; Pulse 84; Resp 26 S; Pulse Ox 92% on R/A; bb 23:28 BP 156 / 97; Pulse 74; Resp 22 S; Pulse Ox 95% on R/A; bb 01/31 01:47 BP 158 / 97; Pulse 103; Resp 16; Pulse Ox 98% on R/A; tl1 04:37 BP 148 / 98; Pulse 101; Resp 26; Temp 98.7(O); Pulse Ox 97% on NC; jb5 01/30 21:03 Body Mass Index 37.49 (92.99 kg, 157.48 cm) ak1 MDM: 01/30 21:36 Patient medically screened. [facility] 01/31 01:09 Data reviewed: vital signs, nurses notes. Data interpreted: Pulse oximetry: on room air snw is 95 %. Interpretation: acceptable. Counseling: I had a detailed discussion with the patient and/or guardian regarding: the historical points, exam findings, and any diagnostic results supporting the discharge/admit diagnosis, the presence of at least one elevated blood pressure reading (>120/80) during this emergency department visit, lab results, radiology results, the need for further work-up and treatment in the hospital. Response to treatment: the patient's symptoms have markedly improved after treatment. Physician consultation: Isidoro Espinal MD was called at 01:10, was contacted at 01:10, regarding admission, to the telemetry unit. 01/30 21:48 Order name: Basic Metabolic Panel snw 01/30 21:48 Order name: CBC with Diff snw 01/30 21:48 Order name: LFT's snw 01/30 21:48 Order name: Magnesium; Complete Time: 00:13 snw 01/30 21:48 Order name: NT PRO-BNP; Complete Time: 00:13 snw 01/30 21:48 Order name: PT-INR; Complete Time: 23:39 snw 01/30 21:48 Order name: Troponin (emerg Dept Use Only); Complete Time: 00:13 snw 01/30 21:48 Order name: Blood Culture Adult (2) snw 01/30 21:48 Order name: Type And Screen; Complete Time: 02:28 snw 01/30 21:48 Order name: TSH; Complete Time: 00:13 snw 01/30 21:50 Order name: Basic Metabolic Panel; Complete Time: 00:13 EDMS 01/30 21:50 Order name: CBC with Automated Diff; Complete Time: 23:39 EDMS 01/30 21:50 Order name: Liver (Hepatic) Function; Complete Time: 00:13 EDMS 01/31 00:51 Order name: Urine Culture snw 01/31 00:51 Order name: Urine For Protein, Random; Complete Time: 02:48 snw 01/31 00:51 Order name: Urine Microscopic Only; Complete Time: 07:14 snw 01/31 01:54 Order name: CBC with Automated Diff EDMS 01/31 01:54 Order name: CBC with Automated Diff; Complete Time: 07:14 EDMS 01/31 01:54 Order name: CBC with Automated Diff EDMS 01/31 01:54 Order name: Comprehensive Metabolic Panel EDMS 01/31 01:54 Order name: Comprehensive Metabolic Panel; Complete Time: 07:14 EDMS 01/31 01:54 Order name: Comprehensive Metabolic Panel EDMS 01/31 01:54 Order name: Magnesium EDMS 01/31 01:54 Order name: Magnesium; Complete Time: 07:14 EDMS 01/31 01:54 Order name: Magnesium EDMS 01/31 01:54 Order name: Phosphorus EDMS 01/31 01:54 Order name: Phosphorus; Complete Time: 07:14 EDMS 01/31 01:54 Order name: Phosphorus EDMS 01/31 01:54 Order name: NT PRO-BNP EDMS 01/31 01:54 Order name: NT PRO-BNP; Complete Time: 07:14 EDMS 01/30 21:08 Order name: Chest Pa And Lat (2 Views) XRAY; Complete Time: 07:55 snw 01/30 21:48 Order name: EKG; Complete Time: 21:50 snw 01/30 21:48 Order name: Cardiac monitoring; Complete Time: 21:53 snw 01/30 21:48 Order name: EKG - Nurse/Tech; Complete Time: 23:30 snw 01/30 21:48 Order name: IV Saline Lock; Complete Time: 22:58 snw 01/30 21:48 Order name: Labs collected and sent; Complete Time: 22:58 snw 01/30 21:48 Order name: O2 Per Protocol; Complete Time: 21:53 snw 01/30 21:48 Order name: O2 Sat Monitoring; Complete Time: 21:53 snw 01/30 22:19 Order name: Philip; Complete Time: 22:58 snw 01/31 00:51 Order name: Urine Dipstick-Ancillary (obtain specimen); Complete Time: 01:48 snw 01/31 01:53 Order name: Heart Healthy EDAK 01/31 01:53 Order name: Echo with Doppler EDMS 01/31 01:54 Order name: NT PRO-BNP EDMS 01/31 01:54 Order name: Urine Dipstick--Ancillary (enter results) [facility] 01/31 01:54 Order name: Urine --Ancillary (enter results) [facility] 01/31 01:58 Order name: MARCY IFA Screen w/Reflex EDMS 01/31 01:58 Order name: Anti-Double Strand DNA Antibod EDMS 01/31 03:05 Order name: Urine --Ancillary; Complete Time: 07:14 EDMS 01/31 03:05 Order name: Urine Dipstick-Ancillary; Complete Time: 07:14 EDMS 01/31 05:35 Order name: Blood Culture EDMS Administered Medications: 01/30 22:45 Drug: Lasix 20 mg Route: IVP; Site: right antecubital; bb 01/31 00:06 Follow up: Response: No adverse reaction bb 00:29 Drug: Magnesium Sulfate 1 grams Route: IVPB; Infused Over: 1 hrs; Site: right bb antecubital; 01:30 Follow up: IV Status: Completed infusion; IV Intake: 100ml bb 00:29 Drug: Potassium Chloride 20 mEq Route: IV; Rate: calculated rate; Site: right bb antecubital; 02:30 Follow up: IV Status: Completed infusion; IV Intake: 100ml bb 00:29 Drug: Potassium Effervescent Tablet 50 mEq Route: PO; bb 01:33 Follow up: Response: No adverse reaction bb 01:42 Drug: Ativan 1 mg Route: IVP; Infused Over: 2 mins; Site: right antecubital; tl1 03:40 Follow up: Response: No adverse reaction; Marked relief of symptoms bb 01:42 Drug: fentaNYL (PF) 25 mcg Route: IVP; Infused Over: 2 mins; Site: right antecubital; tl1 02:00 Follow up: Response: Marked relief of symptoms; Pain is decreased; RASS: Alert and Calm bb (0) 07:18 Drug: Motrin 800 mg Route: PO; aa5 Disposition: 09:03 Co-signature as Attending Physician, Guzman Sykes MD I agree with the assessment and carmelita plan of care. Disposition: 01/31/19 01:11 Hospitalization ordered by Isidoro Espinal for Inpatient Admission. Preliminary diagnosis are Fluid overload, unspecified, Hypomagnesemia, Hypokalemia. - Bed requested for Telemetry/MedSurg (Inpatient). - Status is Inpatient Admission. aa5 - Condition is Stable. - Problem is new. - Symptoms have improved. UTI on Admission? No Signatures: Dispatcher [employer] [facility] Ashely Hernandez RN Guzman Ospina MD MD cha Therrien, Shelly, CASE PICKER-C CASE PICKER-Csnw Renetta Craven RN RN bb Anne Kumar, RN RN aa5 Barbara Dupree, RN RN tl1 Angeles Nichols RN RN ak1 Corrections: (The following items were deleted from the chart) 01/30 21:54 21:50 Chest Single View+RAD.RAD.BRZ ordered. [facility] EDAK 01/31 02:34 01:11 Hospitalization Ordered by Isidoro Espinal MD for Inpatient Admission. Preliminary mw diagnosis is Fluid overload, unspecified; Hypomagnesemia; Hypokalemia. Bed requested for Telemetry/MedSurg (Inpatient). Status is Inpatient Admission. Condition is Stable. Problem is new. Symptoms have improved. UTI on Admission? No. snw 05:47 02:34 01/31/2019 01:11 Hospitalization Ordered by Isidoro Espinal MD for Inpatient mw Admission. Preliminary diagnosis is Fluid overload, unspecified; Hypomagnesemia; Hypokalemia. Bed requested for [facility] ER HOLD. Status is Inpatient Admission. Condition is Stable. Problem is new. Symptoms have improved. UTI on Admission? No. mw 08:05 05:47 01/31/2019 01:11 Hospitalization Ordered by Isidoro Espinal MD for Inpatient aa5 Admission. Preliminary diagnosis is Fluid overload, unspecified; Hypomagnesemia; Hypokalemia. Bed requested for Telemetry/MedSurg (Inpatient). Status is Inpatient Admission. Condition is Stable. Problem is new. Symptoms have improved. UTI on Admission? No. mw
[2019-01-31 02:59] VITALS: BMI 37.5
[2019-01-31 03:04] LABS: Urine Blood TRACE (NEG); Urine Glucose NEGATIVE (NEG); Urine Protein NEGATIVE (NEG)
[2019-01-31 03:05] LABS: Urine Bacteria <20 /HPF (<20); Urine Culture Reflex Order NOT NEEDED; Urine RBC <5 /HPF (NONE SEEN)
[2019-01-31 05:48] LABS: ALT/SGPT 44 U/L (12-78); AST/SGOT 43 U/L (15-37); Albumin 2.2 g/dL (3.4-5.0); Alkaline Phosphatase 138 U/L (45-117); BUN Blood Urea Nitrogen 6 mg/dL (7-18); Basophils % 0.4 % (0-1.3); Bicarbonate 25 mmol/L (21-32); Bilirubin Total 0.2 mg/dL (0.2-1.0); Glucose Level 76 mg/dL (74-106); Hematocrit 30.3 % (36.0-45.0); Lymphocytes % 17.8 % (15.3-44.8); MPV 9.7 fL (7.6-11.3); Magnesium 1.7 mg/dL (1.8-2.4); NT PRO-BNP 1604 pg/mL (<125); Phosphorus 4.6 mg/dL (2.5-4.9); Potassium 3.6 mmol/L (3.5-5.1); RBC Red Blood Cell Count 3.83 M/uL (3.86-4.86); Sodium Level 144 mmol/L (136-145)
[2019-01-31] MEDS: FUROSEMIDE 40 MG/4 ML VIAL IV SCH ×3 (06:00→18:11)
[2019-01-31] MEDS: METOPROLOL TAR 50 MG TAB PO SCH ×2 (06:00→18:10)
[2019-01-31] MEDS ORDERED: METOPROLOL TAR 25 MG TAB ONE (06:02)
[2019-01-31] MEDS ORDERED: FUROSEMIDE 40 MG/4 ML VIAL ONE (06:02)
[2019-01-31] MEDS ORDERED: IBUPROFEN 400 MG TAB ONE (07:21)
--- NOTE | 2019-01-31 07:25 | RAD REPORT ---
EXAM DESCRIPTION: RAD - Chest Pa And Lat (2 Views) - 01/30/2019 9:50 pm CLINICAL HISTORY: Cough;Swelling, lower extremity swelling, recent COMPARISON: None. TECHNIQUE: PA and lateral views of the chest were obtained. FINDINGS: The lungs are underinflated. No focal consolidations seen. Interstitial opacification is p rominent throughout the lung pryor, worse in each lung base. No comparison is available. Chronic in terstitial lung disease would not be expected in a patient this age. Interstitial edema from volume o verload without cardiomegaly would be a primary consideration in a patient this age. There is a long differential for interstitial lung disease. No specific findings on this study. Hilar regions are wit hin normal limits. Infectious interstitial infiltrate possible. Heart size is normal and central vasc ulature is within normal limits. No pleural effusion or pneumothorax seen. No acute bony finding no vinh. No aortic abnormality. IMPRESSION: Bilateral prominent interstitial pattern and he on patient recently . Intersti tial edema from volume overload would be a primary consideration. Viral infiltrate is possible. There is no cardiomegaly present.
[2019-01-31] MEDS ORDERED: INFLUENZA VACCINE (for 3y+) 0.5 ML DOSE IMVAC ONE (08:00)
[2019-01-31] MEDS ORDERED: ASPIRIN EC 81 MG TAB PO SCH (09:00)
[2019-01-31] MEDS ORDERED: POTASSIUM 25 MEQ EFFERV TAB PO SCH (09:00)
[2019-01-31] MEDS ORDERED: ENOXAPARIN 40 MG/0.4 ML SQ SCH (09:00)
--- NOTE | 2019-01-31 10:30 | P.HP ---
Certification for Inpatient Patient admitted to: Inpatient With expected LOS: >2 Midnights Patient will require the following post-hospital care: None Practitioner: I am a practitioner with admitting privileges, knowledge of patient current condition, hospital course, and medical plan of care. Services: Services provided to patient in accordance with Admission requirements found in Title 42 Section 412.3 of the Code of Federal Regulations Patient History Date of Service: 01/31/19 Reason for admission: SHORTNESS OF BREATH/ANASARCA History of Present Illness: PATIENT IS A 23YO WHO WAS ADMITTED TO THE HOSPITAL WITH DYSPNEA. PATIENT HAD AN EMERGENT 2 DAYS PRIOR. PATIENT WAS GIVEN TWO UNITS PRBC. PATIENT HAD A DIAGNOSIS OF PREECLAMPSIA WELL AND SHE HAS HYPOALBUMINEMIA. PATIENT WAS FLUID OVERLOADED. PATIENT WAS DIURESED AND IS FEELING BETTER. PATIENT HAD AN ELEVATED BNP. WILL NEED TO GET AN ECHOCARDIOGRAM. PATIENT WILL BE ADMITTED TO THE HOSPITAL FOR FURTHER EVALUATION. Allergies No Known Allergies Allergy (Verified 01/31/19 04:59) Home Medications: NK [No Home Meds] 01/31/19 - Past Medical/Surgical History Has patient received pneumonia vaccine in the past: No Diabetic: No Past Medical History: Patient denies medical history Past Surgical History: Patient denies surgical history -: - Family History Father Family History: Reviewed- Non-Contributory - Social History Smoking Status: Unknown if ever smoked Alcohol use: No CD- Drugs: No Place of Residence: Home Review of Systems 10-point ROS is otherwise unremarkable Physical Examination - Vital Signs Temperature: 98.6 F Blood Pressure: 147/98 Pulse: 85 Respirations: 18 Pulse Ox (%): 95 - Physical Exam General: Alert, In no apparent distress, Oriented x3 HEENT: Atraumatic, PERRLA, Mucous membr. moist/pink, EOMI, Sclerae nonicteric Neck: Supple, 2+ carotid pulse no bruit, No LAD, Without JVD or thyroid abnormality Respiratory: Clear to auscultation bilaterally, Normal air movement Cardiovascular: Regular rate/rhythm, Normal S1 S2, No murmurs Gastrointestinal: Normal bowel sounds, Soft and benign, Non-distended, No tenderness Musculoskeletal: No clubbing, No swelling, No tenderness Integumentary: No rashes Neurological: Normal gait, Normal speech, Normal strength at 5/5 x4 extr, Normal tone, Sensation intact, Cranial nerves 3-12 intact, Normal affect Lymphatics: No axilla or inguinal lymphadenopathy - Studies Laboratory Data (last 24 hrs) 01/30/19 22:30: PT 11.7, INR 0.99 01/30/19 22:30: WBC 10.2, Hgb 9.8 L, Hct 28.9 L, Plt Count 251 01/30/19 22:30: Sodium 143, Potassium 2.9 L*, BUN 8, Creatinine 0.59, Glucose 76 , Magnesium 1.5 L, Total Bilirubin 0.2, AST 43 H, ALT 37, Alkaline Phosphatase 129 H Assessment & Plan - Plan ASSESSMENT: 1. SHORTNESS OF BREATH 2. ANASARCA 3. RULE OUT CARDIOMYOPATHY 4. HISTORY OF PREECLAMPSIA WITH HYPOALBUMINEMIA PLAN: 1. ECHOCARDIOGRAM 2. IV LASIX 3. POSSIBLE 3RD SPACING BECAUSE OF THE HYPOALBUMINEMIA. CONTINUE GENTLE DIURESING. IF HER WORKUP IS NEGATIVE SHE SHOULD BE ABLE TO GO HOME WITH BLOOD PRESSURE MEDICATION 4. GI AND DVT PROPHYLAXIS Discharge Plan: Home Plan to discharge in: Greater than 2 days - Advance Directives Does patient have a Living Will: No Does patient have a Durable POA for Healthcare: No - Code Status/Comfort Care Code Status Assessed: Yes Code Status: Full Code Critical Care: No Time Spent Managing PTS Care (In Minutes): 45
--- NOTE | 2019-01-31 11:27 | ECHO ---
HEIGHT: 5 ft 2 in WEIGHT: 205 lb 0.126 oz DATE OF STUDY: 01/31/[address]: Isidoro Espinal MD 2-DIMENSIONAL: YES M.MODE: YES DOPPLER: YES COLOR FLOW: YES TDS: NO PORTABLE: NO DEFINITY: NO BUBBLE STUDY: NO DIAGNOSIS: CONGESTIVE HEART FAILURE CARDIAC HISTORY: CATHERIZATION: NO SURGERY: NO PROSTHETIC VALVE: NO PACEMAKER: NO MEASUREMENTS (cm) DIASTOLIC (NORMALS) SYSTOLIC (NORMALS) IVSd 0.9 (0.6-1.2) LA Diam 3.8 (1.9-4.0) LVEF 66% LVIDd 4.8 (3.5-5.7) LVIDs 3.0 (2.0-3.5) %FS 36% LVPWd 1.2 (0.6-1.2) Ao Diam 2.4 (2.0-3.7) 2 DIMENSIONAL ASSESSMENT: RIGHT ATRIUM: NORMAL LEFT ATRIUM: NORMAL RIGHT VENTRICLE: NORMAL LEFT VENTRICLE: NORMAL TRICUSPID VALVE: NORMAL MITRAL VALVE: NORMAL PULMONIC VALVE: NORMAL AORTIC VALVE: NORMAL PERICARDIAL EFFUSION: NONE AORTIC ROOT: NORMAL LEFT VENTRICULAR WALL MOTION: NORMAL. DOPPLER/COLOR FLOW: MILD MITRAL AND TRICUSPID REGURGITATION. COMMENTS: MILD MITRAL AND TRICUSPID REGURGITATION. NORMAL LEFT VENTRICULAR SIZE AND FUNCTION. NO WALL MOTION ABNORMALITY. NO EFFUSION. TECHNOLOGIST: OMERO SNELL
[2019-01-31 12:54] VITALS: O2SAT 95
[2019-01-31 16:28] VITALS: BP 153/106; TEMP 98.8
--- NOTE | 2019-01-31 17:34 | P.DS ---
Admission Date: 01/31/19 Discharge Date: 01/31/19 Disposition: ROUTINE DISCHARGE Discharge Condition: GOOD Reason for Admission: SHORTNESS OF BREATH/ANASARCA Brief History of Present Illness: PATIENT IS A 23YO WHO WAS ADMITTED TO THE HOSPITAL WITH DYSPNEA. PATIENT HAD AN EMERGENT 2 DAYS PRIOR. PATIENT WAS GIVEN TWO UNITS PRBC. PATIENT HAD A DIAGNOSIS OF PREECLAMPSIA WELL AND SHE HAS HYPOALBUMINEMIA. PATIENT WAS FLUID OVERLOADED. PATIENT WAS DIURESED AND IS FEELING BETTER. PATIENT HAD AN ELEVATED BNP. WILL NEED TO GET AN ECHOCARDIOGRAM. PATIENT WILL BE ADMITTED TO THE HOSPITAL FOR FURTHER EVALUATION. Patient was admitted for shortness of breath after a recent emergent for preeclampsia. She was given IV diuresis with Lasix. Echocardiogram was done, which showed ejection fraction 66% and normal. Her symptoms improved and she was breathing better. Prior to discharge, she was alert oriented x3, in no acute distress and hemodynamically stable. She was ambulating without any concerns, she was satting well on room air and her symptoms had resolved. She continued to have lower extremity edema but stated that she would like to go home to be with her 4 day old daughter she otherwise did clinically and hemodynamically well throughout the stay. S her diagnoses and treatment plan was explained to her, all questions were answered she was understanding. She was then discharged home in a safe and stable manner with instructions to follow up with her criminal analyst in a week. Vital Signs/Physical Exam: Temp Pulse Resp BP Pulse Ox 98.8 F 78 18 153/106 H 98 01/31/19 16:00 01/31/19 16:00 01/31/19 16:00 01/31/19 16:00 01/31/19 16:00 General: Alert, In no apparent distress, Oriented x3 HEENT: Atraumatic, PERRLA, EOMI Neck: Supple, JVD not distended Respiratory: Clear to auscultation bilaterally, Normal air movement Cardiovascular: Regular rate/rhythm, Normal S1 S2, Edema (1 to 2+ bilateral lower extremity edema) Gastrointestinal: Normal bowel sounds, No tenderness Musculoskeletal: No tenderness Integumentary: No rashes Neurological: Normal speech, Normal tone, Normal affect Lymphatics: No axilla or inguinal lymphadenopathy Laboratory Data at Discharge: WBC 11.0 K/uL (4.3-10.9) H 01/31/19 05:06 Hgb 10.4 g/dL (12.0-15.0) L 01/31/19 05:06 Hct 30.3 % (36.0-45.0) L 01/31/19 05:06 Plt Count 280 K/uL (152-406) 01/31/19 05:06 PT 11.7 SECONDS (9.5-12.5) 01/30/19 22:30 INR 0.99 01/30/19 22:30 Sodium 144 mmol/L (136-145) 01/31/19 05:06 Potassium 3.6 mmol/L (3.5-5.1) 01/31/19 05:06 BUN 6 mg/dL (7-18) L 01/31/19 05:06 Creatinine 0.56 mg/dL (0.55-1.3) 01/31/19 05:06 Glucose 76 mg/dL (74-106) 01/31/19 05:06 Phosphorus 4.6 mg/dL (2.5-4.9) 01/31/19 05:06 Magnesium 1.7 mg/dL (1.8-2.4) L 01/31/19 05:06 Total Bilirubin 0.2 mg/dL (0.2-1.0) 01/31/19 05:06 AST 43 U/L (15-37) H 01/31/19 05:06 ALT 44 U/L (12-78) 01/31/19 05:06 Alkaline Phosphatase 138 U/L (45-117) H 01/31/19 05:06 Home Medications: Furosemide [Lasix] 40 mg PO BIDL #14 tab 01/31/19 New Medications: Furosemide [Lasix] 40 mg PO BIDL #14 tab Patient Discharge Instructions: Please follow a criminal analyst in a week. Please follow up with primary care physician in 2 days. Return to the emergency room with worsening symptoms. Diet: Low sodium Activity: Ad kel Time spent managing pt's care (in minutes): 45
--- NOTE | 2019-02-01 08:43 | EKG ---
Test Date: 2019-01-30 Test Time: 23:11:37 Senior Sales Director: ANNEL MEASUREMENT RESULTS: Intervals: Rate: 79 WA: 120 QRSD: 76 QT: 380 QTc: 435 [place]: P: 34 WA: 120 QRS: 70 T: 57 INTERPRETIVE STATEMENTS: Normal sinus rhythm with sinus arrhythmia Normal ECG No previous ECG available for comparison Electronically Signed On 02-01-19 08:41:22 CDT by Meet Schreiber
== END 2019-01-31 18:27 | disposition home or self-care (01) | DRG 776 ==
LOC: ER 20:48 → ERHOLD 01-31 01:59 → 4TH 01-31 07:44
PROVIDERS: ADMIT Hospitalist; ATTEND Hospitalist
DX: O90.3 Peripartum cardiomyopathy (principal); E88.09 Other disorders of plasma-protein metabolism, not elsewhere classified; E87.70 Fluid overload, unspecified
CPT/HCPCS: 36415; 51702; 71046; 80048; 80053; 80076; 81003; 81015; 81025; 83735; 83880; 84100; 84156; 84443; 84484; 85025; 85610; 86038; 86225; 86850; 86900; 86901; 87040; 87086; 87088; 93005; 93306; 96365; 96366; 96368; 96375; 99285; J1650; J1940; J3010; J3475